=== PATIENT | male | born 1960 | race Two or more races ===

== ENCOUNTER → 2016-07-01 | Outpatient (CLI) | payer MEDICAID ==
--- NOTE | 2016-07-01 12:12 | REP ---
CERVICAL SPINE, SEVEN VIEWS: HISTORY: Neck pain. The cervical spine is visualized from C1 to the C5-6 level in the lateral radiographs. There is no acute fracture or subluxation. The C3-4 intervertebral disc is decreased in height consistent with disc degeneration. There is narrowing of the C4 neural foramina secondary to uncinate process hypertrophy. IMPRESSION: Degenerative change as described above. Signed by Shai Knott MD 07/01/2016 12:22 P
--- NOTE | 2016-07-01 12:14 | REP ---
THORACIC SPINE, FOUR VIEWS: HISTORY: Neck pain. There are old compression fractures of the T6-8 vertebral bodies with minimal height loss. There is loss of height of several mid and lower thoracic intervertebral discs. Anterior osteophytes are present in the mid and lower thoracic spine. IMPRESSION: Degenerative change as described above. Signed by Shai Knott MD 07/01/2016 12:22 P
== END ==
LOC: M ADAMS 10:05
PROVIDERS: ATTEND Physician Assistant Medical
DX: M54.2 Cervicalgia (principal); M50.33 Other cervical disc degeneration, cervicothoracic region; M25.78 Osteophyte, vertebrae

== ENCOUNTER → 2016-07-01 | Outpatient (REF) | payer MEDICAID ==
[2016-07-01 13:17] LABS: FOLATE 14.1 NG/ML
[2016-07-01 13:24] LABS: ALBUMIN 4.3 GM/DL (3.2-5.2); ALBUMIN/GLOBULIN RATIO 1.19 (1.00-1.93); ALKALINE PHOSPHATASE 115 U/L (45-117); ALT/SGPT 30 U/L (12-78); ANION GAP 5 MEQ/L (8-16); AST/SGOT 21 U/L (15-37); BILIRUBIN,TOTAL 0.3 MG/DL (0.2-1.0); BLOOD UREA NITROGEN 9 MG/DL (7-18); CALCIUM LEVEL 9.4 MG/DL (8.5-10.1); CARBON DIOXIDE LEVEL 32 MEQ/L (21-32); CHLORIDE LEVEL 102 MEQ/L (98-107); CHOLESTEROL LEVEL 220 MG/DL (<200); CREATININE FOR GFR 0.96 MG/DL (0.70-1.30); GLOMERULAR FILTRATION RATE > 60.0 (>56); GLUCOSE, FASTING 92 MG/DL (70-105); POTASSIUM SERUM 4.4 MEQ/L (3.5-5.1); SODIUM LEVEL 139 MEQ/L (136-145); TOTAL PROTEIN 7.9 GM/DL (6.4-8.2); TRIGLYCERIDES LEVEL 175 MG/DL (<150)
[2016-07-01 13:25] LABS: VITAMIN B12 LEVEL 373 PG/ML
[2016-07-01 14:01] LABS: BASO # 0.1 K/mm3 (0.0-0.2); BASO % 1.4 % (0.0-1.0); EOS # 0.3 K/mm3 (0.0-0.50); EOS % 3.6 % (0.0-3.0); LARGE UNSTAINED CELL # 0.2 K/mm3 (0.0-0.4); LARGE UNSTAINED CELL % 2.2 % (0.0-4.0); LYMPH # 1.6 K/mm3 (1.5-4.5); LYMPH % 22.5 % (24.0-44.0); MEAN CORPUSCULAR HEMOGLOBIN 32.7 pg (27.0-33.0); MEAN CORPUSCULAR VOLUME 98.8 fl (80.0-96.0); MONO # 0.7 K/mm3 (0.0-0.8); MONO % 9.1 % (0.0-5.0); NEUTROPHILS # 4.4 K/mm3 (1.8-7.7); NEUTROPHILS % 61.2 % (36.0-66.0); PLATELET COUNT, AUTOMATED 328 k/mm3 (150-450); RED CELL DISTRIBUTION WIDTH 12.9 % (11.5-14.5); WHITE BLOOD COUNT 7.2 K/mm3 (4.0-10.0)
== END ==
LOC: M SFHCADAM 09:31
PROVIDERS: ATTEND Physician Assistant Medical
DX: I10 Essential (primary) hypertension (principal); R20.2 Paresthesia of skin

== ENCOUNTER → 2016-08-19 | Outpatient (CLI) | payer OTHER ==
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
== END ==
LOC: M RAD 15:27
PROVIDERS: ATTEND Psychiatry & Neurology Neurology
DX: M47.892 Other spondylosis, cervical region (principal); M47.893 Other spondylosis, cervicothoracic region; M51.36 Other intervertebral disc degeneration, lumbar region; M51.87 Other intervertebral disc disorders, lumbosacral region; M47.894 Other spondylosis, thoracic region; M54.2 Cervicalgia; M43.02 Spondylolysis, cervical region; M54.12 Radiculopathy, cervical region; M54.89 Other dorsalgia; M43.04 Spondylolysis, thoracic region; M54.5 Low back pain; M43.06 Spondylolysis, lumbar region; M54.16 Radiculopathy, lumbar region

== ENCOUNTER → 2016-08-27 | Outpatient (CLI) | payer OTHER ==
--- NOTE | 2016-08-27 10:03 | REP ---
Clinical: Left testicular mass. Technique: Real time francis scale and color Doppler evaluation using linear high frequency transducer. Findings: The bilateral testicles and right epididymis are normal in contour, size, echogenicity, and vascularity without evidence for torsion, mass, or infectious/inflammatory process. In the region of suspected mass, the left epididymis demonstrates a cystic component measuring 2.8 x 1.7 x 2.0 cm with mobile, layering debris suggesting spermatocele. A small associated left sided hydrocele is also identified. No varicoceles noted bilaterally. Right testicle measures 4.6 x 2.6 x 3.0 cm. Left testicle measures 4.8 x 2.6 x 3.0 cm. Impression: 1. Left-sided palpable mass corresponds to 2.8 cm presumed spermatocele along with small simple hydrocele. 2. Normal bilateral testicles and right epididymis. Signed by Laurent Pabon MD 08/27/2016 09:54 A
== END ==
LOC: M RAD 09:05
PROVIDERS: ATTEND Physician Assistant Medical
DX: N50.9 Disorder of male genital organs, unspecified (principal)

== ENCOUNTER → 2016-09-13 | Outpatient (CLI) | payer OTHER ==
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
== END ==
LOC: M PAIN 11:20
PROVIDERS: ATTEND Nurse Practitioner Family
DX: G89.29 Other chronic pain (principal); M50.20 Other cervical disc displacement, unspecified cervical region; M79.1 Myalgia; M54.5 Low back pain; F17.210 Nicotine dependence, cigarettes, uncomplicated; I10 Essential (primary) hypertension; R41.3 Other amnesia; E55.9 Vitamin D deficiency, unspecified; R20.2 Paresthesia of skin; Z91.030 Bee allergy status; Z79.899 Other long term (current) drug therapy

== ENCOUNTER → 2016-11-17 | Outpatient (CLI) | payer OTHER ==
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
== END ==
LOC: M PAIN 11:00
PROVIDERS: ATTEND Nurse Practitioner Family
DX: M50.20 Other cervical disc displacement, unspecified cervical region (principal); M79.1 Myalgia; G89.29 Other chronic pain; M54.5 Low back pain; I10 Essential (primary) hypertension; E55.9 Vitamin D deficiency, unspecified; R41.3 Other amnesia; M25.511 Pain in right shoulder; Z87.891 Personal history of nicotine dependence; Z79.899 Other long term (current) drug therapy; Z91.030 Bee allergy status

== ENCOUNTER → 2016-12-07 | Outpatient (CLI) | payer OTHER ==
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
== END ==
LOC: M PAIN 13:45
PROVIDERS: ATTEND Nurse Practitioner Family
DX: M50.20 Other cervical disc displacement, unspecified cervical region (principal); M79.1 Myalgia; M25.511 Pain in right shoulder; M54.5 Low back pain; G89.29 Other chronic pain; I10 Essential (primary) hypertension; E55.9 Vitamin D deficiency, unspecified; F17.210 Nicotine dependence, cigarettes, uncomplicated; Z91.030 Bee allergy status

== ENCOUNTER → 2017-02-04 | Outpatient (CLI) | payer OTHER ==
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
== END ==
LOC: M PAIN 10:15
PROVIDERS: ATTEND Nurse Practitioner Family
DX: G89.29 Other chronic pain (principal); M50.20 Other cervical disc displacement, unspecified cervical region; M25.511 Pain in right shoulder; M79.1 Myalgia; I10 Essential (primary) hypertension; E55.9 Vitamin D deficiency, unspecified; F17.210 Nicotine dependence, cigarettes, uncomplicated; F41.9 Anxiety disorder, unspecified; Z91.030 Bee allergy status; Z79.899 Other long term (current) drug therapy

== ENCOUNTER → 2017-03-10 | Outpatient (REF) | payer OTHER | LOC: M SFHCADAM 08:01 | PROVIDERS: ATTEND Physician Assistant Medical | DX: E55.9 Vitamin D deficiency, unspecified (principal) ==

== ENCOUNTER → 2017-12-16 | Outpatient (CLI) | payer OTHER | LOC: M PLARAD 12:36 | DX: M54.6 Pain in thoracic spine (principal); M47.814 Spondylosis without myelopathy or radiculopathy, thoracic region; M47.892 Other spondylosis, cervical region; M54.12 Radiculopathy, cervical region | CPT/HCPCS: 72141 ==

== ENCOUNTER → 2017-12-27 | Outpatient (CLI) | payer MEDICAID | LOC: M OUTALCOH 08:00 | DX: Z13.89 Encounter for screening for other disorder (principal); F10.20 Alcohol dependence, uncomplicated ==

== ENCOUNTER → 2018-01-05 | Outpatient (CLI) | payer OTHER | LOC: M PAIN 10:15 | DX: M47.22 Other spondylosis with radiculopathy, cervical region (principal); M79.10 Myalgia, unspecified site; G60.3 Idiopathic progressive neuropathy; R20.2 Paresthesia of skin; F41.9 Anxiety disorder, unspecified; I73.00 Raynaud's syndrome without gangrene; Z79.899 Other long term (current) drug therapy; Z91.030 Bee allergy status | CPT/HCPCS: G0463 ==

== ENCOUNTER 2018-01-06 15:37 | Outpatient (RCR) | payer MEDICAID | END 2018-02-01 | LOC: M OUTALCOH 15:37 | DX: F10.20 Alcohol dependence, uncomplicated (principal); F17.200 Nicotine dependence, unspecified, uncomplicated ==

== ENCOUNTER → 2018-02-27 | Outpatient (CLI) | payer OTHER | LOC: M PAIN 10:45 | DX: M47.22 Other spondylosis with radiculopathy, cervical region (principal); M79.18 Myalgia, other site; I10 Essential (primary) hypertension; E11.9 Type 2 diabetes mellitus without complications; R20.2 Paresthesia of skin; F41.9 Anxiety disorder, unspecified; I73.00 Raynaud's syndrome without gangrene; G60.3 Idiopathic progressive neuropathy; F17.210 Nicotine dependence, cigarettes, uncomplicated; Z79.899 Other long term (current) drug therapy; Z91.030 Bee allergy status | CPT/HCPCS: G0463 ==

== ENCOUNTER → 2018-04-28 | Outpatient (REF) | payer OTHER ==
[2018-04-28 16:04] LABS: BASO # 0.1 10^3/uL (0.0-0.2); BASO % 1.7 % (0.0-1.0); EOS # 0.4 10^3/uL (0.0-0.50); EOS % 4.4 % (0.0-3.0); HEMATOCRIT 46.8 % (42.0-52.0); HEMOGLOBIN 15.7 g/dl (13.5-17.5); LYMPH # 2.8 10^3/uL (1.5-4.5); LYMPH % 34.3 % (24.0-44.0); MEAN CORPUSCULAR HGB CONC 33.5 g/dl (32.0-36.5); MEAN CORPUSCULAR VOLUME 92.5 fl (80.0-96.0); MONO # 0.9 10^3/uL (0.0-0.8); NEUTROPHILS % 48.2 % (36.0-66.0); PLATELET COUNT, AUTOMATED 333 10^3/uL (150-450); RED BLOOD COUNT 5.06 10^6/uL (4.30-6.10); WHITE BLOOD COUNT 8.3 10^3/uL (4.0-10.0)
[2018-04-28 16:30] LABS: ALBUMIN 4.2 GM/DL (3.2-5.2); ALT/SGPT 21 U/L (12-78); BILIRUBIN,TOTAL 0.2 MG/DL (0.2-1.0); BLOOD UREA NITROGEN 9 MG/DL (7-18); CALCIUM LEVEL 9.2 MG/DL (8.5-10.1); CARBON DIOXIDE LEVEL 27 MEQ/L (21-32); CHLORIDE LEVEL 100 MEQ/L (98-107); CHOLESTEROL LEVEL 265 MG/DL (<200); CHOLESTEROL RISK RATIO 7.571 (<5); CREATININE FOR GFR 1.04 MG/DL (0.70-1.30); GLOMERULAR FILTRATION RATE > 60.0 (>56); GLUCOSE, FASTING 106 MG/DL (70-100); HDL CHOLESTEROL 35 MG/DL (>40); LDL CHOLESTEROL 175 MG/DL (<100); NON-HDL-C 230 MG/DL; POTASSIUM SERUM 4.7 MEQ/L (3.5-5.1); SODIUM LEVEL 135 MEQ/L (136-145); TOTAL PROTEIN 8.1 GM/DL (6.4-8.2); TRIGLYCERIDES LEVEL 273 MG/DL (<150)
[2018-04-28 16:38] LABS: TOTAL 25(OH) VITAMIN D 24.7 NG/ML (30.0-100.0)
== END ==
LOC: M SFHCADAM 13:31
PROVIDERS: ATTEND Physician Assistant Medical
DX: I10 Essential (primary) hypertension (principal); E55.9 Vitamin D deficiency, unspecified

== ENCOUNTER 2019-01-11 15:20 | Inpatient (IN) | payer OTHER ==
[~2019-01-11] VITALS: Ht 182.9 cm; Wt 95.1 kg
[2019-01-11] MEDS ORDERED: AMIT50TA PO (15:36)
[2019-01-11] MEDS ORDERED: BACL10TA2 PO (15:36)
[2019-01-11] MEDS ORDERED: LISI10TA4 PO (15:36)
[2019-01-11] MEDS ORDERED: GABA-1171 PO (15:36)
[2019-01-11 16:01] LABS: HEMATOCRIT 45.6 % (42.0-52.0); HEMOGLOBIN 15.4 g/dl (13.5-17.5); MEAN CORPUSCULAR HEMOGLOBIN 30.4 pg (27.0-33.0); MEAN CORPUSCULAR HGB CONC 33.8 g/dl (32.0-36.5); MEAN CORPUSCULAR VOLUME 89.9 fl (80.0-96.0); PLATELET COUNT, AUTOMATED 311 10^3/uL (150-450); RED BLOOD COUNT 5.07 10^6/uL (4.30-6.10); WHITE BLOOD COUNT 10.1 10^3/uL (4.0-10.0)
[2019-01-11 16:17] LABS: INR 0.97; PARTIAL THROMBOPLASTIN TIME 30.6 SECONDS (25.0-38.4); PROTHROMBIN TIME 12.6 SECONDS (11.8-14.0)
[2019-01-11 16:35] LABS: BLOOD UREA NITROGEN 9 MG/DL (7-18); CALCIUM LEVEL 9.4 MG/DL (8.5-10.1); CARBON DIOXIDE LEVEL 29 MEQ/L (21-32); CHLORIDE LEVEL 100 MEQ/L (98-107); CK-MB VALUE MASS < 1.0 NG/ML (<3.6); CPK CREATINE PHOSPHOKINASE 94 U/L (39-308); CREATININE FOR GFR 1.02 MG/DL (0.70-1.30); GLOMERULAR FILTRATION RATE > 60.0 (>56); GLUCOSE, FASTING 116 MG/DL (70-100); MB/CK RELATIVE INDEX 1.06 (< OR =4); POTASSIUM SERUM 4.1 MEQ/L (3.5-5.1); SODIUM LEVEL 135 MEQ/L (136-145); TROPONIN I < 0.02 NG/ML (< 0.10)
--- NOTE | 2019-01-11 16:38 | REP ---
CT brain without contrast: History: CVA. No comparison CT study. CT findings: Preliminary digital windows support engineer radiograph is unremarkable. The bony calvarium is intact. There is a small mucous retention cyst in the right sphenoid sinus. Vascular calcification is noted in the carotid siphons bilaterally. No intraorbital abnormality is appreciated. On soft tissue window settings, there is no evidence of intracranial hemorrhage, mass, acute infarct, or midline shift. There is a small low density area inferiorly in the right basal ganglia consistent with dilated perivascular space. This is felt to be normal variant. There are mild small vessel changes in the periventricular white matter. Impression: No acute intracranial abnormality. Vascular calcification and mild small vessel changes. Electronically Signed by Holger Ferrara MD 01/11/2019 04:30 P
--- NOTE | 2019-01-11 16:43 | REP ---
Portable chest x-ray: Single view. History: CVA. No comparison study. Findings: EKG electrodes are seen. The lungs are symmetrically aerated and free of focal infiltrate. Pleural angles are sharp. Cardiomediastinal silhouette is unremarkable. No bony abnormalities seen. Impression: No active disease. Electronically Signed by Holger Ferrara MD 01/11/2019 04:34 P
[2019-01-11] MEDS ORDERED: ASPIRIN 325 MG TAB PO ONE (17:30)
[2019-01-11] MEDS ORDERED: MULTCAP PO (17:54)
[2019-01-11] MEDS ORDERED: MAALOX 30 ML SUSP *UDC PO PRN (19:15)
[2019-01-11] MEDS ORDERED: BACLOFEN 10 MG TAB PO PRN (19:15)
[2019-01-11] MEDS ORDERED: ACETAMINOPHEN TAB 650MG DOSE (2X325MG) PO PRN (19:15)
[2019-01-11] MEDS ORDERED: GABAPENTIN 100 MG CAP PO PRN (19:15)
[2019-01-11] MEDS ORDERED: MOM 30ML SUSPENSION UDC PO PRN (19:15)
[2019-01-11] MEDS ORDERED: MULTIVITAMINS/MINERALS THERAP 1 TAB PO ONE (19:15)
[2019-01-11 19:30] VITALS: O2SAT 96
--- NOTE | 2019-01-11 19:36 | REPVR ---
PROCEDURE INFORMATION: Exam: MR Head Without Contrast Exam date and time: 01/11/2019 5:30 PM Clinical history: 58 years old, male; Weakness, extremity; Right; Additional info: CVA TECHNIQUE: Imaging protocol: MR of the head without contrast. COMPARISON: CT Head without contrast 01/11/2019 4:21 PM FINDINGS: Brain: Acute infarct in the left thalamus measuring 5 mm.Mild chronic microvascular ischemic changes. Ventricles: Normal. No ventriculomegaly. Bones/joints: Unremarkable. Soft tissues: Unremarkable. Sinuses: See Brain Finding. Mastoid air cells: Normal as visualized. No mastoid effusion. Orbits: Unremarkable. Mucous retention cyst/polyp of the right sphenoid sinus. IMPRESSION: Acute infarct of the left thalamus measuring 5 mm. Electronically signed by: Noam Curry On 01/11/2019 19:36:41 PM
--- NOTE | 2019-01-11 19:38 | REPVR ---
PROCEDURE INFORMATION: Exam: MR Angiogram Head Without Contrast, Arteries Exam date and time: 01/11/2019 5:30 PM Clinical history: 58 years old, male; Weakness; Additional info: CVA TECHNIQUE: Imaging protocol: MR angiogram head without contrast. Exam focused on the arteries. COMPARISON: CT Head without contrast 01/11/2019 4:21 PM FINDINGS: Right internal carotid artery: Unremarkable. Intracranial segment is patent with no significant stenosis. No aneurysm. Right anterior cerebral artery: Unremarkable. No occlusion or significant stenosis. No aneurysm. Right middle cerebral artery: Unremarkable. No occlusion or significant stenosis. No aneurysm. Right posterior cerebral artery: Unremarkable. No occlusion or significant stenosis. No aneurysm. Right vertebral artery: Unremarkable. No occlusion or significant stenosis. No aneurysm. Left internal carotid artery: Unremarkable. Intracranial segment is patent with no significant stenosis. No aneurysm. Left anterior cerebral artery: Unremarkable. No occlusion or significant stenosis. No aneurysm. Left middle cerebral artery: Unremarkable. No occlusion or significant stenosis. No aneurysm. Left posterior cerebral artery: Unremarkable. No occlusion or significant stenosis. No aneurysm. Left vertebral artery: Unremarkable. No occlusion or significant stenosis. No aneurysm. Basilar artery: Unremarkable. No occlusion or significant stenosis. No aneurysm. IMPRESSION: No acute abnormality. Electronically signed by: Noam Curry On 01/11/2019 19:38:09 PM
[2019-01-11 20:00] VITALS: BP 171/98
[2019-01-11 20:24] LABS: BASO # 0.1 10^3/uL (0.0-0.2); BASO % 1.1 % (0.0-1.0); EOS # 0.1 10^3/uL (0.0-0.5); EOS % 0.9 % (0.0-3.0); HEMATOCRIT 45.5 % (42.0-52.0); HEMOGLOBIN 15.6 g/dl (13.5-17.5); LYMPH # 1.7 10^3/uL (1.5-5.0); MEAN CORPUSCULAR HEMOGLOBIN 30.6 pg (27.0-33.0); MEAN CORPUSCULAR HGB CONC 34.3 g/dl (32.0-36.5); MEAN CORPUSCULAR VOLUME 89.4 fl (80.0-96.0); MONO % 10.8 % (0.0-5.0); NEUTROPHILS # 6.6 10^3/uL (1.5-8.5); NEUTROPHILS % 68.9 % (36.0-66.0); PLATELET COUNT, AUTOMATED 297 10^3/uL (150-450); RED BLOOD COUNT 5.09 10^6/uL (4.30-6.10); WHITE BLOOD COUNT 9.6 10^3/uL (4.0-10.0)
[2019-01-11] MEDS: NS 1,000 ML IV SCH (20:27)
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
[2019-01-11] MEDS ORDERED: ISOVUE-370 76% 100ML VIAL (Q9967) As Ordered ONE (20:41)
[2019-01-11 20:49] LABS: HEMOGLOBIN A1c 5.6 %
[2019-01-11] MEDS: DOCUSATE SODIUM 100 MG CAP PO SCH (20:57)
[2019-01-11] MEDS: AMITRIPTYLINE 50 MG TAB PO SCH (20:57)
[2019-01-11] MEDS: ATORVASTATIN 20 MG TAB PO SCH (20:58)
[2019-01-11 21:32] LABS: ALBUMIN 4.1 GM/DL (3.2-5.2); ALT/SGPT 17 U/L (12-78); BILIRUBIN,TOTAL 0.4 MG/DL (0.2-1.0); BLOOD UREA NITROGEN 7 MG/DL (7-18); CALCIUM LEVEL 9.7 MG/DL (8.5-10.1); CARBON DIOXIDE LEVEL 27 MEQ/L (21-32); CHLORIDE LEVEL 102 MEQ/L (98-107); CREATININE FOR GFR 0.94 MG/DL (0.70-1.30); GLOMERULAR FILTRATION RATE > 60.0 (>56); GLUCOSE, FASTING 96 MG/DL (70-100); SODIUM LEVEL 136 MEQ/L (136-145); TOTAL PROTEIN 8.7 GM/DL (6.4-8.2)
[2019-01-11 21:56] LABS: TROPONIN I < 0.02 NG/ML (< 0.10)
[2019-01-11 22:00] VITALS: O2SAT 98
--- NOTE | 2019-01-11 22:05 | REPVR ---
PROCEDURE INFORMATION: Exam: CT Angiography Head With Contrast Exam date and time: 01/11/2019 9:08 PM Clinical history: 58 years old, male; Other: Stroke TECHNIQUE: Imaging protocol: Computed tomography angiography of the head with intravenous contrast. 3D rendering: MIP reconstructed images were created and reviewed. Radiation optimization: All CT scans at this facility use at least one of these dose optimization techniques: automated exposure control; mA and/or kV adjustment per patient size (includes targeted exams where dose is matched to clinical indication); or iterative reconstruction. Contrast material: ISOVUE 370; Contrast volume: 100 ml; Contrast route: IV; COMPARISON: CT Head without contrast 01/11/2019 4:21 PM FINDINGS: Right internal carotid artery: Unremarkable. Intracranial segment is patent with no significant stenosis. No aneurysm. Right anterior cerebral artery: Unremarkable. No occlusion or significant stenosis. No aneurysm. Right middle cerebral artery: Unremarkable. No occlusion or significant stenosis. No aneurysm. Right posterior cerebral artery: Unremarkable. No occlusion or significant stenosis. No aneurysm. Right vertebral artery: Unremarkable. No occlusion or significant stenosis. No aneurysm. Left internal carotid artery: Unremarkable. Intracranial segment is patent with no significant stenosis. No aneurysm. Left anterior cerebral artery: Unremarkable. No occlusion or significant stenosis. No aneurysm. Left middle cerebral artery: Unremarkable. No occlusion or significant stenosis. No aneurysm. Left posterior cerebral artery: Unremarkable. No occlusion or significant stenosis. No aneurysm. Left vertebral artery: Unremarkable. No occlusion or significant stenosis. No aneurysm. Basilar artery: Unremarkable. No occlusion or significant stenosis. No aneurysm. IMPRESSION: Normal CTA. No significant stenosis, aneurysm, or vascular occlusion. Electronically signed by: Misael Sky On 01/11/2019 22:05:02 PM
--- NOTE | 2019-01-11 22:16 | REPVR ---
PROCEDURE INFORMATION: Exam: CT Head With Contrast Exam date and time: 01/11/2019 9:08 PM Clinical history: 58 years old, male; Other: Stroke TECHNIQUE: Imaging protocol: Computed tomography of the head with intravenous contrast. Radiation optimization: All CT scans at this facility use at least one of these dose optimization techniques: automated exposure control; mA and/or kV adjustment per patient size (includes targeted exams where dose is matched to clinical indication); or iterative reconstruction. Contrast material: ISOVUE 370; Contrast volume: 75 ml; Contrast route: IV; COMPARISON: CT Head without contrast 01/11/2019 4:21 PM FINDINGS: Brain: Normal ventricles. Symmetric cerebral sulci. The francis-white differentiation appears preserved. Bones/joints: Unremarkable. No acute fracture. Sinuses: Clear paranasal sinuses. Mastoid air cells: Clear mastoid air cells. Soft tissues: Unremarkable. Other findings: There is no evidence of acute stroke. An MRI scan would be more sensitive for this. IMPRESSION: No evidence of bleed. No evidence of stroke. An MRI scan would be more sensitive for this. PROCEDURE INFORMATION: Exam: CT Head Without And With Contrast Exam date and time: 01/11/2019 9:08 PM Clinical history: 58 years old, male; Other: Stroke TECHNIQUE: Imaging protocol: Computed tomography of the head without and with intravenous contrast. COMPARISON: CT Head without contrast 01/11/2019 4:21 PM FINDINGS: Brain: There is no evidence of abnormal enhancement within the brain. There is no evidence of mass effect. There is no evidence of mass effect. Ventricles: Normal. No ventriculomegaly. Bones/joints: Unremarkable. No acute fracture. Sinuses: Visualized sinuses are unremarkable. No fluid levels. Mastoid air cells: Visualized mastoid air cells are well aerated. Soft tissues: Unremarkable. Vasculature: There is opacification of the vessels of the [place]. There is opacification of the cavernous sinus bilaterally and also the venous sinuses. IMPRESSION: No evidence of vascular abnormality. Electronically signed by: Joey Zavaleta On 01/11/2019 22:16:20 PM
[2019-01-11 22:30] VITALS: BP 122/70
[2019-01-11 23:00] VITALS: O2SAT 93
[2019-01-11 23:59] VITALS: BP 122/72
[2019-01-12] VITALS (23 sets, daily range): BP systolic 117–143; BP diastolic 73–88; O2SAT 93–98
[2019-01-12 03:37] LABS: HEMATOCRIT 42.4 % (42.0-52.0); HEMOGLOBIN 14.7 g/dl (13.5-17.5); MEAN CORPUSCULAR HGB CONC 34.7 g/dl (32.0-36.5); MEAN CORPUSCULAR VOLUME 89.5 fl (80.0-96.0); PLATELET COUNT, AUTOMATED 269 10^3/uL (150-450); RED BLOOD COUNT 4.74 10^6/uL (4.30-6.10); WHITE BLOOD COUNT 9.2 10^3/uL (4.0-10.0)
[2019-01-12 03:59] LABS: ALBUMIN 3.9 GM/DL (3.2-5.2); ALT/SGPT 21 U/L (12-78); BILIRUBIN,TOTAL 0.5 MG/DL (0.2-1.0); BLOOD UREA NITROGEN 7 MG/DL (7-18); CALCIUM LEVEL 8.9 MG/DL (8.5-10.1); CARBON DIOXIDE LEVEL 26 MEQ/L (21-32); CHLORIDE LEVEL 106 MEQ/L (98-107); CREATININE FOR GFR 0.93 MG/DL (0.70-1.30); GLOMERULAR FILTRATION RATE > 60.0 (>56); GLUCOSE, FASTING 93 MG/DL (70-100); POTASSIUM SERUM 4.2 MEQ/L (3.5-5.1); SODIUM LEVEL 141 MEQ/L (136-145); TOTAL PROTEIN 7.7 GM/DL (6.4-8.2); TROPONIN I < 0.02 NG/ML (< 0.10)
[2019-01-12] MEDS: NS 1,000 ML IV SCH ×2 (07:30→16:05)
--- NOTE | 2019-01-12 07:35 | ECGEPIP ---
[facility] - ED Test Date: 2019-01-11 Pat Name: LUIGI MYRICK Department: Room: - Gender: Male [employer] Set [employer] Operator: SARAH BETH : 1960 Requested By: ROSY Umana Order Number: [id number] Reading MD: Senthil Hale Measurements Intervals [place] Rate: 70 P: 39 CA: 194 QRS: 7 QRSD: 120 T: 28 QT: 375 QTc: 406 Interpretive Statements SINUS RHYTHM INCOMPLETE RIGHT BUNDLE BRANCH BLOCK NO PRIORS FOR COMPARISON Electronically Signed on 01-12-2019 7:35:01 EDT by Senthil Hale
[2019-01-12] MEDS ORDERED: PANTOPRAZOLE 40MG TAB (PROTONIX) PO SCH (09:00)
[2019-01-12] MEDS ORDERED: ASPIRIN ENTERIC 325 MG TAB PO SCH (09:00)
[2019-01-12] MEDS: LISINOPRIL 10 MG TAB PO SCH (09:27)
[2019-01-12] MEDS: DOCUSATE SODIUM 100 MG CAP PO SCH ×2 (09:27→21:00)
[2019-01-12] MEDS: CLOPIDOGREL 75 MG TAB PO SCH (10:13)
--- NOTE | 2019-01-12 10:16 | IPNPDOC ---
Subjective Date Seen The patient was seen on 01/12/19. Subjective Chief Complaint/HPI still has some numbness in right lip and right arm/hand Constitutional: Denies: Chills ENT: Denies: Head Aches, Dysphagia Skin: Denies: Rash Pulmonary: Denies: Dyspnea, Cough, Pleuritic Chest Pain Cardiovascular: Denies: Chest Pain, Palpitations Gastrointestinal: Denies: Nausea, Abdominal Pain Genitourinary: Denies: Dysuria, Frequency Hematologic: Denies: Bruising Neurological: Reports: Numbness; Denies: Change in speech (right lip and right hand) Psych: Reports: Mood Normal Objective Physical Examination General Exam: Positive: Alert, Cooperative, Moderate Distress (complaints of pain, numbness and tingling right side of face, spreading to right shoulder greatest pain is here radiating down to the right wrist & is increasing) Eye Exam: Positive: PERRLA, Conjunctiva & lids normal ENT Exam: Positive: Atraumatic, Pharynx Normal, Tongue Midline, Nares Patent, Other ENT (top teeth across the front decayed, black in color) Neck Exam: Positive: Supple, +2 carotid pulse wo bruit Chest Exam: Positive: Clear to auscultation, Normal air movement Heart Exam: Positive: Rate Normal, Regular Rhythm, Normal S1, Normal S2 Abdomen Exam: Positive: Normal bowel sounds, Soft Extremity Exam: Positive: Normal pulses Skin Exam: Positive: Nl turgor and temperature, Other skin issue (left upper arm tattoo, left lower leg tattoo (outer)) Neuro Exam: Positive: Normal Speech (slightly dysarthric but many missing teeth may contribute. patient perceives his speech as normal.), Other (uneven right cheek during puffing out cheeks during cranial nerves VII Assessment with right- sided slightly drooped downward; subjective decrease light touch sensation right lip, right thumb, index.) Psych Exam: Positive: Anxiety (mild anxiety), Oriented x 3 Assessment /Plan Problems (1) CVA (cerebral vascular accident) Status: Acute Response to Treatment: Stable Problem Specific Plan: Consult Specialist Problem Text: atorvastatin, ASA, Clopidogrel have been ordered. Neuro Consult was ordered by admitting hospitalist. MRI showing acute 5mm left thalamic infarct. MRA not showing any occlusions. (2) Hypercholesteremia Status: Chronic Problem Text: has not been on Rx for this problem. Atorvastatin started. (3) Tobacco abuse Status: Chronic Response to Treatment: Stable Problem Text: admits to 1/2-1 ppd has been counseled to quit. (4) Teeth decayed Status: Chronic Response to Treatment: Stable Problem Specific Plan: Monitor Clinically Problem Text: had Dentist in the community ([place]) but did not follow through with recommended treatment. (5) Essential hypertension Status: Chronic Response to Treatment: Stable Problem Specific Plan: Monitor Clinically Problem Text: had been on lisinopril 10mg with adequate control at last office visit 04/2018. Plan/VTE VTE Prophylaxis Ordered?: Yes VTE Exclusion Pharmacological: Bleeding Risk VS, I&O, 24H, Fishbone Vital Signs/I&O Vital Signs Date Time Temp Pulse Resp B/P (MAP) Pulse Ox O2 Delivery O2 Flow Rate FiO2 01/12/19 09:27 121/75 01/12/19 07:39 98.1 76 18 100 2.0 01/12/19 06:00 Nasal Cannula I&O- Last 24 Hours up to 6 AM 01/12/19 06:00 Intake Total 950 ml Output Total 450 ml Balance 500 ml Laboratory Data 24H LABS Laboratory Tests 2 01/11/19 15:51: Nucleated Red Blood Cells % (auto) 0.0, Prothrombin Time 12.6, Prothromb Time International Ratio 0.97, Activated Partial Thromboplast Time 30.6, Anion Gap 6L, Glomerular Filtration Rate > 60.0, Blood Urea Nitrogen 9, Creatinine 1.02, Sodium Level 135L, Potassium Level 4.1, Chloride Level 100, Carbon Dioxide Level 29, Calcium Level 9.4, Total Creatine Kinase 94, Creatine Kinase MB < 1.0, Creat ine Kinase MB Relative Index 1.06, Troponin I < 0.02 01/11/19 20:13: Anion Gap 7L, Glomerular Filtration Rate > 60.0, Blood Urea Nitrogen 7, Creatinine 0.94, Sodium Level 136, Potassium Level 4.0, Chloride Level 102, Carbon Dioxide Level 27, Calcium Level 9.7, Troponin I < 0.02, Aspartate Amino Transf (AST/SGOT) 11, Alanine Aminotransferase (ALT/SGPT) 17, Alkaline Phosphatase 154H, Total Bilirubin 0.4, Total Protein 8.7H, Albumin 4.1, Albumin/Globulin Ratio 0.89L, Thyroid Stimulating Hormone (TSH) 1.780 01/11/19 20:14: Nucleated Red Blood Cells % (auto) 0.0, Immature Granulocyte % (Auto) 0.3, White Blood Count 9.6, Red Blood Count 5.09, Hemoglobin 15.6, Hematocrit 45.5, Mean Corpuscular Volume 89.4, Mean Corpuscular Hemoglobin 30.6, Mean Corpuscular Hemoglobin Concent 34.3, Red Cell Distribution Width 13.4, Platelet Count 297, Neutrophils (%) (Auto) 68.9H, Lymphocytes (%) (Auto) 18.0L, Monocytes (%) (Auto) 10.8H, Eosinophils (%) (Auto) 0.9, Basophils (%) (Auto) 1.1H, Neutrophils # (Auto) 6.6, Lymphocytes # (Auto) 1.7, Monocytes # (Auto) 1.0H, Eosinophils # (Auto) 0.1, Basophils # (Auto) 0.1, Estimated Mean Plasma Glucose 114H, Hemoglobin A1c 5.6 01/12/19 00:42: Urine Color YELLOW, Urine Appearance CLEAR, Urine pH 6.0, Urine Specific [place] 1.038, Urine Protein NEGATIVE, Urine Glucose (UA) NEGATIVE, Urine Ketones TRACEH, Urine Blood NEGATIVE, Urine Nitrite NEGATIVE, Urine Bilirubin NEGATIVE, Urine Urobilinogen 0.2, Urine Leukocyte Esterase NEGATIVE, Urine WBC (Auto) 0, Urine RBC (Auto) 3, Urine Hyaline Casts (Auto) 0, Urine Bacteria (Auto) NEGATIVE, Urine Squamous Epithelial Cells 0, Urine Sperm (Auto) 01/12/19 03:16: Lactic Acid Level 0.5 01/12/19 03:17: Nucleated Red Blood Cells % (auto) 0.0, Anion Gap 9, Glomerular Filtration Rate > 60.0, Blood Urea Nitrogen 7, Creatinine 0.93, Sodium Level 141, Potassium Level 4.2, Chloride Level 106, Carbon Dioxide Level 26, Calcium Level 8.9, Aspartate Amino Transf (AST/SGOT) 9, Alanine Aminotransferase (ALT/SGPT) 21, Alkaline Phosphatase 153H, Total Bilirubin 0.5, Total Protein 7.7, Albumin 3.9, Magnesium Level 2.0, Troponin I < 0.02, Albumin/Globulin Ratio 1.03 01/12/19 09:09: Troponin I < 0.02 CBC/BMP Laboratory Tests 01/11/19 15:51 Red Blood Count 5.07, Mean Corpuscular Volume 89.9, Mean Corpuscular Hemoglobin 30.4, Mean Corpuscular Hemoglobin Concent 33.8, Red Cell Distribution Width 13.6, Calcium Level 9.4, Total Creatine Kinase 94 01/11/19 20:13 Calcium Level 9.7, Aspartate Amino Transf (AST/SGOT) 11, Alanine Aminotransferase (ALT/SGPT) 17, Alkaline Phosphatase 154 H, Total Bilirubin 0.4, Total Protein 8.7 H, Albumin 4.1 01/11/19 20:14 Red Blood Count 5.09, Mean Corpuscular Volume 89.4, Mean Corpuscular Hemoglobin 30.6, Mean Corpuscular Hemoglobin Concent 34.3, Red Cell Distribution Width 13.4, Neutrophils (%) (Auto) 68.9 H, Lymphocytes (%) (Auto) 18.0 L, Monocytes (%) (Auto) 10.8 H, Eosinophils (%) (Auto) 0.9, Basophils (%) (Auto) 1.1 H, Neutrophils # (Auto) 6.6, Lymphocytes # (Auto) 1.7, Monocytes # (Auto) 1.0 H, Eosinophils # (Auto) 0.1, Basophils # (Auto) 0.1 01/12/19 03:17 Red Blood Count 4.74, Mean Corpuscular Volume 89.5, Mean Corpuscular Hemoglobin 31.0, Mean Corpuscular Hemoglobin Concent 34.7, Red Cell Distribution Width 13.5, Calcium Level 8.9, Aspartate Amino Transf (AST/SGOT) 9, Alanine Aminotransferase (ALT/SGPT) 21, Alkaline Phosphatase 153 H, Total Bilirubin 0.5, Total Protein 7.7, Albumin 3.9 Salazar Beth MD Jan 12, 2019 10:16
--- NOTE | 2019-01-12 11:06 | REP ---
Right shoulder three views: Mineralization is normal. The acromioclavicular joint is unremarkable. There is glenohumeral osteoarthritis. There is a calcification projected inferior to the acromion compatible with calcific tendonitis. Impression: Glenohumeral osteoarthritis. 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 Electronically Signed by Justin Arrieta MD 01/12/2019 10:57 A
--- NOTE | 2019-01-12 19:07 | CR ---
DATE OF CONSULTATION: 01/12/2019 REFERRING PHYSICIAN: Dr. Deedee Katz REASON FOR CONSULTATION: Right-sided facial and arm numbness. HISTORY OF PRESENT ILLNESS: Vinay Erazo is a 58-year-old man who was at his baseline state of health until the morning of 01/10/2019 when he woke up with right-sided facial, lip, gums, and arm numbness and tingling. He called his primary care physician who recommended him to come to emergency department. He denies any headache, neck or back pain with his symptoms. He denies any weakness, imbalance, or trouble with his speech. He came to [facility] on 01/11/2019, and MRI scan of brain showed a 5 mm small left thalamic acute ischemic stroke. He was admitted for further workup. DIAGNOSTIC STUDIES: MRI scan of brain was reviewed and showed a 5 mm small left thalamic acute ischemic stroke. MRA brain and CTA of neck were unremarkable. His telemetry showed normal sinus rhythm. PAST MEDICAL HISTORY: 1. Hypertension. 2. Peripheral neuropathy. 3. Chronic neck and back pain. 4. Carpal tunnel syndrome. 5. History of tobacco and alcohol abuse in past. HOME MEDICATIONS: - amitriptyline 50 mg by mouth at bedtime - lisinopril 10 mg by mouth daily - multivitamin one capsule by mouth daily - baclofen 10 mg by mouth three times a day as needed - gabapentin 100 mg by mouth twice a day as needed ALLERGIES: Bee stings. SOCIAL HISTORY: He quit smoking in March 2019. He smoked one pack per day for 11 years. He quit drinking alcohol in February 2018. He was drinking six packs of beer a day and a fifth of vodka a day. He used cocaine many years ago and quit 15 years ago. FAMILY HISTORY: His mother and father both had stroke. REVIEW OF SYSTEMS: All systems were reviewed and found to be noncontributory except as mentioned in history of present illness. PHYSICAL EXAMINATION: Temperature 97.1, blood pressure 128/88, respiratory rate 18. HEART: Regular rate and rhythm. LUNGS: Clear to auscultation. ABDOMEN: Soft, nontender, nondistended. No pedal edema. No musculoskeletal abnormalities. No rash. No signs of meningeal irritation. The patient is awake, alert, oriented to place, person, and time. Normal speech, comprehension, and repetition. Extraocular muscles are intact. No facial weakness. Uvula are midline. Strength 5/5 in all four extremities. There is no nystagmus. Visual vogel are full to confrontation. Recent and distant memory is intact. He has decreased cold touch sensation on right side of face around his mouth and right forearm, but it is much better. Sensation in both legs is decreased. This is due to his peripheral neuropathy likely. Gait is normal. ASSESSMENT: 1. Small acute left thalamic 5 mm ischemic stroke. 2. Rule out cardiac source, coagulopathy and vasculopathy. 3. History of bilateral carpal tunnel syndrome and peripheral neuropathy. 4. History of alcohol and tobacco abuse in past, and the patient has quit both. PLAN: 1. Echocardiogram and continue telemetry monitoring. 2. Aspirin 81 mg by mouth daily and Lipitor 40 mg by mouth daily. Will check his fasting lipid profile in the morning. Blood tests for coagulopathy and vasculopathy. 3. Plavix 75 mg by mouth daily for 1 month and then can be discontinued. 4. Followup with our office in 2-4 weeks after hospital discharge. OSIRIS
[2019-01-12 19:27] LABS: C REACTIVE PROTEIN QUANTITATIV 0.92 MG/DL (0.00-0.30); RHEUMATOID FACTOR QUANT < 10.0 IU/ML (<15.0)
[2019-01-12] MEDS: ATORVASTATIN 20 MG TAB PO SCH (21:00)
[2019-01-12] MEDS: AMITRIPTYLINE 50 MG TAB PO SCH (21:00)
[2019-01-13] VITALS: BP 130/85
[2019-01-13] MEDS: NS 1,000 ML IV SCH ×2 (01:55→11:15)
[2019-01-13 04:00] VITALS: BP 123/73
[2019-01-13 06:54] LABS: CHOLESTEROL RISK RATIO 6.233 (<5)
[2019-01-13 07:00] VITALS: O2SAT 99
[2019-01-13 07:38] VITALS: BP 138/80
[2019-01-13 08:00] VITALS: O2SAT 96
[2019-01-13] MEDS ORDERED: ASPIRIN 81 MG ENTERIC TAB PO SCH (09:00)
[2019-01-13] MEDS ORDERED: ASPI81TAEC PO (09:22)
[2019-01-13] MEDS ORDERED: CLOP75TA2 PO (09:22)
[2019-01-13] MEDS ORDERED: ATOR1TAB21 PO (09:27)
[2019-01-13 09:30] VITALS: BP 138/80
[2019-01-13] MEDS: LISINOPRIL 10 MG TAB PO SCH (09:30)
[2019-01-13] MEDS: CLOPIDOGREL 75 MG TAB PO SCH (09:30)
[2019-01-13] MEDS: DOCUSATE SODIUM 100 MG CAP PO SCH (09:30)
--- NOTE | 2019-01-13 10:02 | ECGEPIP ---
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
--- NOTE | 2019-01-13 16:35 | DSES ---
DATE OF ADMISSION: 01/11/2019 DATE OF DISCHARGE: 01/13/2019 REASON FOR ADMISSION: Mr. Erazo was admitted with right-sided facial and hand paresthesias, numbness, and some sense of weakness. Minimal facial droop was detected on admission as well. He has a history of hypertension and some history of alcohol abuse. MRI shows a stroke in the left thalamus area of 5 mm in size. No intra-arterial occlusive lesions were demonstrated. During his hospital stay his blood pressure was initially high. It came quickly under control with no significant modification of his medications. He was placed on aspirin and Plavix. He had no recurrent symptoms, and the intensity of his paresthesias and sense of weakness has improved somewhat since admission. X-ray of right shoulder was done because complaint of right shoulder pain, and he has glenohumeral osteoarthritis, calcification inferior to the acromion, compatible with calcific tendonitis. The patient was seen in consultation by Dr. Shukla, who would like to have an echocardiogram performed. The patient has no history of dysrhythmia or exertional chest pain. The patient quit smoking recently. Had been smoking a pack a day for at least 11 years. Echocardiogram was requested by Dr. Shukla and has not yet been performed and will be done today, and will discharge the patient once the procedure is completed, since it is not likely that regardless of the findings that he would benefit from continue stay in the hospital here. Additional laboratory studies that are pending at this time include an ELISE, kyld-dnvavl-wmouxdtk DNA, antithrombin III antigen, anticardiolipin antibodies, antineutrophil cytoplasmic antibodies, factor II prothrombin gene, factor V Leiden, factor VIII panel, homocysteine, and lupus type anticoagulant. These are pending at this time, as is the echocardiogram result. DISCHARGE DIAGNOSES: 1. Stroke involving left thalamus with residual paresthesias and sense of weakness in the right face, right lip, and right hand. No significant functional impairment associated with same at this time. 2. Hypertension, well controlled. 3. Dyslipidemia. 4. History of alcohol and tobacco abuse. 5. 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 PLAN: The patient will be discharged on current medication regimen, which will consist of aspirin 81 mg daily, clopidogrel 75 mg daily. The intent is to continue this combination for 1 month and then discontinue clopidogrel and continue aspirin indefinitely. Also will be on Lipitor 40 mg daily. The patient educated about the medication's utility and potential side effects and that the intent is for this to be a lifelong therapeutic to help reduce long-term stroke risk and cardiovascular risk. Activity will be as tolerated. Diet: 2-gram sodium. Followup with primary care physician (PCP), Nereyda Hunt, in [address] Shukla in 2-3 weeks and pending labs as listed above. MTDD
--- NOTE | 2019-01-14 06:39 | ECHO ---
DATE OF SERVICE: 01/12/2019 REFERRING PROVIDER: Jerson Shukla MD REASON FOR STUDY: Cerebrovascular accident (CVA). 2D MEASUREMENTS: IVS: 1.1 cm LV: 5.7 cm LVPW: 1.1 cm LA: 4.2 cm Aorta: 3.2 cm RV: 3.5 cm IVC: 2.0 cm DOPPLER MEASUREMENTS: Peak velocity across the aortic valve: 1.3 m/s Peak velocity across the LVOT: 1.0 m/s Mitral E: 0.74 Mitral A: 0.61 with a ratio of 1.2 2D COMMENTS: 1. The left ventricle appeared to be mildly enlarged in limited views. Left ventricular wall thickness is normal as well as left ventricular systolic function. The estimated global left ventricular systolic ejection fraction is 60-65%. 2. Mildly enlarged left atrium. The right atrium and right ventricle appeared to be mildly enlarged in limited views. Right ventricular wall free wall conduction seems to be normal. Preserved systolic function. 3. The atrial septum appeared to be normal without evidence of defect or shunt. 4. Normal aortic root. 5. Trace to small pericardial effusion noted, no evidence of cardiac tamponade. 6. The aortic valve, mitral valve, tricuspid valve, and pulmonic valve appeared to be normal. The proximal pulmonary artery branches also appear to be normal. The inferior vena cava was mildly enlarged, central venous pressure might be eleated. Doppler, no significant valvular abnormalities detected. Assessment of the left ventricular diastolic function appeared to be normal. IMPRESSION: 1. Normal global left ventricular systolic function with a mildly enlarged left ventricle. Left ventricular diastolic function appeared to be normal. 2. Trace to small pericardial effusion, no evidence of cardiac tamponade. 3 The right heart chambers, the right atrium and the right ventricle appeared to be mildly enlarged in limited views, but with preserved systolic function. There was no significant tricuspid regurgitation detected and the pulmonic valve also appeared to be normal. 4. The inferior vena cava was mildly enlarged, central venous pressure might be elevated.
[2019-01-16 11:23] LABS: DRVV SCREEN 46.3 SEC
[2019-01-16 11:48] LABS: PTT LUPUS TYPE ANTICOAG SCREEN 1.1 (0-1.2)
== END 2019-01-13 12:10 | disposition home or self-care (01) | DRG 45 ==
LOC: M ED 15:20 → M ED INP 15:21 → M PCU 19:55 → OBSVTOIN 20:44
PROVIDERS: ADMIT Internal Medicine; ATTEND Family Medicine
DX: I63.9 Cerebral infarction, unspecified (principal); I69.351 Hemiplegia and hemiparesis following cerebral infarction affecting right dominant side; I10 Essential (primary) hypertension; G62.9 Polyneuropathy, unspecified; E78.5 Hyperlipidemia, unspecified; M75.31 Calcific tendinitis of right shoulder; M19.011 Primary osteoarthritis, right shoulder; Z87.891 Personal history of nicotine dependence; F10.10 Alcohol abuse, uncomplicated; G89.29 Other chronic pain; Z79.899 Other long term (current) drug therapy; J30.1 Allergic rhinitis due to pollen; K02.9 Dental caries, unspecified; M54.5 Low back pain; M54.2 Cervicalgia

== ENCOUNTER 2019-06-08 07:44 | Outpatient (RCR) | payer MEDICAID ==
[~2019-06-08 07:44] MED LIST: AMIT50TA PO; ASPI81TAEC PO; ATOR1TAB21 PO; BACL10TA2 PO; CLOP75TA2 PO; GABA-1171 PO; LISI10TA4 PO; MULTCAP PO
== END 2019-07-03 ==
LOC: M OUTALCOH 07:44
PROVIDERS: ATTEND Psychiatry & Neurology Addiction Medicine
DX: Z03.89 Encounter for observation for other suspected diseases and conditions ruled out (principal)

== ENCOUNTER 2019-06-15 12:46 | Outpatient (RCR) | payer MEDICAID | END 2019-07-03 | LOC: M OUTALCOH 12:46 | PROVIDERS: ATTEND Psychiatry & Neurology Addiction Medicine | DX: Z03.89 Encounter for observation for other suspected diseases and conditions ruled out (principal) ==

== ENCOUNTER → 2019-06-18 | Outpatient (REF) | payer OTHER ==
[2019-06-18 12:56] LABS: BASO # 0.1 10^3/uL (0.0-0.2); BASO % 1.4 % (0.0-1.0); EOS # 0.5 10^3/uL (0.0-0.5); EOS % 4.7 % (0.0-3.0); HEMATOCRIT 45.1 % (42.0-52.0); HEMOGLOBIN 15.1 g/dl (13.5-17.5); LYMPH # 3.1 10^3/uL (1.5-5.0); LYMPH % 32.1 % (24.0-44.0); MEAN CORPUSCULAR HEMOGLOBIN 31.3 pg (27.0-33.0); MEAN CORPUSCULAR HGB CONC 33.5 g/dl (32.0-36.5); MEAN CORPUSCULAR VOLUME 93.6 fl (80.0-96.0); MONO % 10.1 % (0.0-5.0); NEUTROPHILS % 51.2 % (36.0-66.0); PLATELET COUNT, AUTOMATED 314 10^3/uL (150-450); RED BLOOD COUNT 4.82 10^6/uL (4.30-6.10); WHITE BLOOD COUNT 9.7 10^3/uL (4.0-10.0)
[2019-06-18 13:11] LABS: ALBUMIN 3.7 GM/DL (3.2-5.2); ALT/SGPT 27 U/L (12-78); BILIRUBIN,TOTAL 0.3 MG/DL (0.2-1.0); BLOOD UREA NITROGEN 5 MG/DL (7-18); CALCIUM LEVEL 8.8 MG/DL (8.5-10.1); CARBON DIOXIDE LEVEL 32 MEQ/L (21-32); CHLORIDE LEVEL 101 MEQ/L (98-107); CHOLESTEROL LEVEL 130 MG/DL (<200); CHOLESTEROL RISK RATIO 3.095 (<5); CREATININE FOR GFR 0.91 MG/DL (0.70-1.30); FREE T4 1.01 NG/DL (0.76-1.46); GLOMERULAR FILTRATION RATE > 60.0 (>56); GLUCOSE, FASTING 87 MG/DL (70-100); HDL CHOLESTEROL 42 MG/DL (>40); LDL CHOLESTEROL 57 MG/DL (<100); NON-HDL-C 88 MG/DL; POTASSIUM SERUM 4.4 MEQ/L (3.5-5.1); SODIUM LEVEL 137 MEQ/L (136-145); TOTAL PROTEIN 7.5 GM/DL (6.4-8.2); TRIGLYCERIDES LEVEL 155 MG/DL (<150)
[2019-06-18 13:13] LABS: TOTAL 25(OH) VITAMIN D 29.6 NG/ML (30.0-100.0)
[2019-06-18 14:37] LABS: HEMOGLOBIN A1c 6.1 %
== END ==
LOC: M SFHCADAM 08:04
PROVIDERS: ATTEND Physician Assistant Medical
DX: I10 Essential (primary) hypertension (principal); F17.210 Nicotine dependence, cigarettes, uncomplicated; E55.9 Vitamin D deficiency, unspecified; Z12.11 Encounter for screening for malignant neoplasm of colon; Z12.12 Encounter for screening for malignant neoplasm of rectum

== ENCOUNTER → 2020-07-28 | Outpatient (REF) | payer OTHER ==
[~2020-07-28] MED LIST changes: +ASPI-569 PO; -ASPI81TAEC PO; +LISI10TA22 PO; -LISI10TA4 PO
[2020-07-28 17:31] LABS: BASO # 0.1 10^3/uL (0.0-0.2); BASO % 1.2 % (0.0-1.0); EOS # 0.1 10^3/uL (0.0-0.5); EOS % 1.3 % (0.0-3.0); HEMATOCRIT 43.3 % (42.0-52.0); HEMOGLOBIN 14.6 g/dl (13.5-17.5); LYMPH # 2.1 10^3/uL (1.5-5.0); LYMPH % 22.3 % (24.0-44.0); MEAN CORPUSCULAR HEMOGLOBIN 35.3 pg (27.0-33.0); MEAN CORPUSCULAR HGB CONC 33.7 g/dl (32.0-36.5); MEAN CORPUSCULAR VOLUME 104.6 fl (80.0-96.0); MONO % 10.7 % (2.0-8.0); NEUTROPHILS % 63.5 % (36.0-66.0); PLATELET COUNT, AUTOMATED 277 10^3/uL (150-450); RED BLOOD COUNT 4.14 10^6/uL (4.30-6.10); WHITE BLOOD COUNT 9.4 10^3/uL (4.0-10.0)
[2020-07-28 18:08] LABS: ALBUMIN 3.5 GM/DL (3.2-5.2); ALT/SGPT 65 U/L (12-78); BILIRUBIN,TOTAL 0.3 MG/DL (0.2-1.0); BLOOD UREA NITROGEN 9 MG/DL (7-18); CALCIUM LEVEL 9.3 MG/DL (8.5-10.1); CARBON DIOXIDE LEVEL 28 MEQ/L (21-32); CHLORIDE LEVEL 101 MEQ/L (98-107); CHOLESTEROL LEVEL 195 MG/DL (<200); CHOLESTEROL RISK RATIO 2.267 (<5); CREATININE FOR GFR 0.64 MG/DL (0.70-1.30); GLOMERULAR FILTRATION RATE > 60.0 (>56); GLUCOSE, FASTING 125 MG/DL (70-100); HDL CHOLESTEROL 86 MG/DL (>40); LDL CHOLESTEROL 82 MG/DL (<100); NON-HDL-C 109 MG/DL; POTASSIUM SERUM 4.6 MEQ/L (3.5-5.1); SODIUM LEVEL 135 MEQ/L (136-145); TOTAL PROTEIN 7.5 GM/DL (6.4-8.2); TRIGLYCERIDES LEVEL 137 MG/DL (<150)
[2020-07-29 09:57] LABS: TOTAL 25(OH) VITAMIN D 31.2 NG/ML (30.0-100.0)
== END ==
LOC: M SFHCADAM 12:32
PROVIDERS: ATTEND Physician Assistant Medical
DX: I10 Essential (primary) hypertension (principal); R41.3 Other amnesia; M50.30 Other cervical disc degeneration, unspecified cervical region; E55.9 Vitamin D deficiency, unspecified

== ENCOUNTER → 2020-10-09 | Outpatient (CLI) | payer OTHER ==
--- NOTE | 2020-10-09 12:51 | REP ---
INDICATION: RIB PAIN ON LEFT SIDE. COMPARISON: None TECHNIQUE: This examination was completed at 10:47 a.m., however, it has been brought to my attention for interpretation at 12:37 p.m. the reason for the delay is unknown to me. Four views of the left ribs and frontal view of the chest. FINDINGS: Multiple views of the left ribs show no fracture or osseous lesion. The accompanying frontal view of the chest shows no cardiomegaly. There is a slight increase in the interstitial markings in the lung bases with slight bilateral CP angle blunting. IMPRESSION: 1. No evidence of rib fracture or destructive at osseous lesion. 2. Lung base findings as described above. There are no priors for comparison. Small bilateral pleural effusions cannot be ruled out. Consider follow-up with chest CT. <Electronically signed by Gutierrez Villatoro > 10/09/20 [id number]
== END ==
LOC: M ADAMS 10:52
PROVIDERS: ATTEND Physician Assistant Medical
DX: R07.81 Pleurodynia (principal)

== ENCOUNTER 2020-11-25 13:57 | Emergency (ER) | payer OTHER ==
[~2020-11-25] VITALS: Ht 182.9 cm; Wt 78.1 kg
[2020-11-25] MEDS ORDERED: LISI20TA33 PO (14:51)
[2020-11-25] MEDS ORDERED: HYDR-3713 PO (14:51)
[2020-11-25] MEDS ORDERED: NS 1,000 ML IV ONE (16:30)
[2020-11-25] MEDS ORDERED: ALBUTEROL SULFATE 2.5 MG/0.5 ML INH NEB SOLN NEB SCH (16:30)
[2020-11-25] MEDS ORDERED: methylPREDNISolone 125MG 2ML VIAL IV ONE (16:30)
[2020-11-25] MEDS ORDERED: FAMOTIDINE INJ 20MG/2ML VIAL (S0028 PER 1) IVP ONE (16:30)
[2020-11-25 16:39] LABS: HEMATOCRIT 43.7 % (42.0-52.0); HEMOGLOBIN 14.6 g/dl (13.5-17.5); MEAN CORPUSCULAR HEMOGLOBIN 34.8 pg (27.0-33.0); MEAN CORPUSCULAR HGB CONC 33.4 g/dl (32.0-36.5); MEAN CORPUSCULAR VOLUME 104.3 fl (80.0-96.0); PLATELET COUNT, AUTOMATED 298 10^3/uL (150-450); RED BLOOD COUNT 4.19 10^6/uL (4.30-6.10)
[2020-11-25 16:51] LABS: ALBUMIN 3.6 GM/DL (3.2-5.2); ALT/SGPT 52 U/L (12-78); BILIRUBIN,DIRECT 0.2 MG/DL (0.0-0.2); BILIRUBIN,TOTAL 0.6 MG/DL (0.2-1.0); BLOOD UREA NITROGEN 4 MG/DL (7-18); CALCIUM LEVEL 8.8 MG/DL (8.5-10.1); CARBON DIOXIDE LEVEL 28 MEQ/L (21-32); CHLORIDE LEVEL 102 MEQ/L (98-107); CREATININE FOR GFR 0.73 MG/DL (0.70-1.30); GLOMERULAR FILTRATION RATE > 60.0 (>56); GLUCOSE, FASTING 88 MG/DL (70-100); POTASSIUM SERUM 4.4 MEQ/L (3.5-5.1); SODIUM LEVEL 135 MEQ/L (136-145); TOTAL PROTEIN 7.7 GM/DL (6.4-8.2)
[2020-11-25] MEDS ORDERED: ISOVUE-370 76% 100ML VIAL As Ordered ONE (17:03)
[2020-11-25] MEDS ORDERED: ALBUTEROL 90 MCG/ACT 8GM HFA INHALER INH ONE (17:05)
--- NOTE | 2020-11-25 17:19 | REP ---
INDICATION: DYSPNEA/COUGH COMPARISON: 01/11/2019 TECHNIQUE: PA and lateral. FINDINGS: The mediastinum and cardiac silhouette are normal. The lung vogel are clear and without acute consolidation, effusion, or pneumothorax. The skeletal structures are intact and normal. IMPRESSION: No acute cardiopulmonary process. <Electronically signed by Laurent Pabon > 11/25/20 [id number]
[2020-11-25 17:24] LABS: ERYTHROCYTE SEDIMENTATION RATE 7 mm/hr (0-20)
[2020-11-25 17:32] VITALS: BP 119/70
--- NOTE | 2020-11-25 17:34 | REPVR ---
PROCEDURE INFORMATION: Exam: CT Neck With Contrast Exam date and time: 11/25/2020 5:08 PM Age: 60 years old Clinical indication: Neck pain; Additional info: Teeth pulled yest/swelling into neck TECHNIQUE: Imaging protocol: Computed tomography images of the neck with contrast. Radiation optimization: All CT scans at this facility use at least one of these dose optimization techniques: automated exposure control; mA and/or kV adjustment per patient size (includes targeted exams where dose is matched to clinical indication); or iterative reconstruction. Contrast material: ISOVUE 370; Contrast volume: 75 ml; Contrast route: INTRAVENOUS (IV); COMPARISON: MRI-Spine,Cervical without con 12/16/2017 1:15 PM FINDINGS: Nasopharynx: Unremarkable. Dental: There are numerous left mandibular empty tooth sockets consistent with history of recent extraction. There are multiple caries noted in remaining teeth. Oropharynx: Unremarkable. No significant tonsillar enlargement. Hypopharynx: Unremarkable. Larynx: Unremarkable. Normal epiglottis. Retropharyngeal space: Unremarkable. Submandibular/Parotid glands: Unremarkable Thyroid: Normal. No enlarged or calcified nodules. Lymph nodes: Unremarkable. No lymphadenopathy. Trachea: Visualized trachea is unremarkable. Lungs: Unremarkable Bones/joints: There is spondylosis and disc space narrowing in the cervical spine. Soft tissues: There are inflammatory changes of the subcutaneous fat in the facial and submandibular region more extensive on the left. This extends into the anterior lower neck. It does not extend to the mediastinum. There is no focal fluid collection to indicate an abscess. IMPRESSION: 1. Multiple left mandibular tooth extractions. There is facial edema consistent with cellulitis. This extends into the submandibular and anterior neck regions and should be correlated for clinical appearance of Brijesh angina 2. No soft tissue abscess. Electronically signed by: Lamberto Espinal On 11/25/2020 17:34:08 PM
[2020-11-25] MEDS ORDERED: PIPERACILLIN/TAZOBACTAM SOD 3.375 GM in D5W MINI-BAG PLUS 50 ML IV ONE (18:20)
[2020-11-25] MEDS ORDERED: AUGM875T28 PO (20:02)
[2020-11-25] MEDS ORDERED: PRED20TA PO (20:02)
== END 2020-11-25 20:38 | disposition home or self-care (01) ==
LOC: M ED 13:57
DX: L03.211 Cellulitis of face (principal); I10 Essential (primary) hypertension; R06.02 Shortness of breath; Z86.73 Personal history of transient ischemic attack (TIA), and cerebral infarction without residual deficits; F17.200 Nicotine dependence, unspecified, uncomplicated; F12.10 Cannabis abuse, uncomplicated; Z79.82 Long term (current) use of aspirin; Z79.899 Other long term (current) drug therapy; Z91.030 Bee allergy status
CPT/HCPCS: 70491; 71046; 80048; 80076; 85027; 85652; 86140; 94640; 94664; 96365; 99284; J2543; J2930; Q9967

== ENCOUNTER 2021-01-18 05:16 | Inpatient (IN) | payer OTHER ==
[~2021-01-18] VITALS: Ht 182.9 cm; Wt 84.2 kg
[2021-01-18] VITALS (48 sets, daily range): BP systolic 60–134; BP diastolic 40–81
[~2021-01-18 05:16] MED LIST changes: +AUGM875T28 PO; +HYDR-3713 PO; +LISI20TA33 PO; +PRED20TA PO
[2021-01-18] MEDS ORDERED: ROCURONIUM BROMIDE 50 MG/5 ML VIAL ONE (05:17)
[2021-01-18] MEDS ORDERED: ETOMIDATE INJ 20MG/10ML VIAL ONE (05:17)
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
--- OUTSIDE RECORDS SUMMARY | 2021-01-18 05:21 | CCD ---
Author Author [facility] Organization [facility] Address Unknown Phone Unavailable Care Team Providers Care Print Producer Name Role Phone Nereyda Hunt Unavailable PROBLEMS Type Condition ICD9-CM Code [id number] Code Onset Dates Condition S tatus W/U Status Risk SNOMED Code Notes Problem Essential hypertension I10 Active confirmed 68446213 Problem Vitamin D deficiency E55.9 Active confirmed 31359311 Problem Cervical disc displacement M50.20 Active confirmed 724319054 Problem Marijuana use, continuous F12.90 Active confirmed 18898599 Problem Memory impairment R41.3 Active confirmed 38 4820605 Problem Cerebrovascular accident (CVA) of left thalamus I6 3.9 Active confirmed 985583882 Problem Cigarette nicotine dependence without complication F17.210 Active confirmed 74197659 Problem Osteoarthritis of spine with radiculopathy, lumbar region M47.26 Active confirmed 993222722 Problem Degenerative disc disease, cervical M50.30 Acti ve confirmed 24646358 Problem Cervical spondylosis with radiculopathy M47.22 Active confirmed 537208678 Problem History of alcohol abuse Z87.898 Active confirmed 840491153 ALLERGIES Allergen (clinical drug ingredient) Drug/Non Drug Allergy do cumented on EMR Reaction Allergy Type Onset Date Status Bee Sting swells up Drug Allergy Active ENCOUNTERS from 1960 to 2021-01-15 Encounter Location Date Provider Diagnosis [address] [phone] [place] [address] 08 Jan, 2021 Nereyda Hunt IMMUNIZATIONS Vaccine Route [...] Notes Total Score: 3 Interpretation: Alcohol Education Mandaeism: Question Answer Notes Mandaeism 08 L[employer] Day Sexual Hx: Question Answer Notes Had sex [...] Once a day for 30 Not-Taking Drisdol 90784 UNIT 1 capsule Orally twice weekly for 30 day(s) Jul, Active Plavix 75 MG 1 tablet Orally Once a day for 30 day(s) Active PROCEDURES No Information RESULTS No Results REASON FOR VISIT BAD TOOTH MEDICAL (GENERAL) HISTORY Type Description Date Medical [...] Details Provider Name:Nereyda Hunt, 2021-03-02 10:30:00 AM, [address] [address], , [place], [address], Insurance Providers Payer Name Payer Address Payer Phone Insured Name Patient Relati onship to Insured Coverage Start Date Coverage End Date [facility] COMM[facility]AN [facility] [address] [facility] [phone] LUIGI MYRICK self
--- OUTSIDE RECORDS SUMMARY | 2021-01-18 05:21 | CCD ---
Author Author [facility] Organization [facility] Address Unknown Phone Unavailable Care Team Providers Care Office Assistant Receptionist Name Role Phone Nereyda Hunt Unavailable PROBLEMS Type Condition ICD9-CM Code GPT15-YN Code Onset Dates Condition S tatus W/U Status Risk SNOMED Code Notes Problem Essential hypertension I10 Active confirmed 02269897 Problem Vitamin D deficiency E55.9 Active confirmed 50100145 Problem Cervical disc displacement M50.20 Active confirmed 481028343 Problem Marijuana use, continuous F12.90 Active confirmed 41731847 Problem Memory impairment R41.3 Active confirmed 38 0885539 Problem Cerebrovascular accident (CVA) of left thalamus I6 3.9 Active confirmed 179428585 Problem Cigarette nicotine dependence without complication F17.210 Active confirmed 55922006 Problem Osteoarthritis of spine with radiculopathy, lumbar region M47.26 Active confirmed 643521818 Problem Degenerative disc disease, cervical M50.30 Acti ve confirmed 25348868 Problem Cervical spondylosis with radiculopathy M47.22 Active confirmed 465090509 Problem History of alcohol abuse Z87.898 Active confirmed 874617681 ALLERGIES Allergen (clinical drug ingredient) Drug/Non Drug Allergy do cumented on EMR Reaction Allergy Type Onset Date Status bees swells up Non Drug Allergy Active ENCOUNTERS from 1960 to 2020-12-19 Encounter Location Date Provider Diagnosis [facility] [address] [place] [address] 14 Dec, 2020 Nereyda Hunt IMMUNIZATIONS Vaccine Route Administration Date [...] Notes Total Score: 3 Interpretation: Alcohol Education Scientology: Question Answer Notes Scientology 08 Baptism Sexual Hx: Question Answer Notes Had sex [...] Once a day for 30 Not-Taking Drisdol 30368 UNIT 1 capsule Orally twice weekly for 30 day(s) Jul, Active Plavix 75 MG 1 tablet Orally Once a day for 30 day(s) Active PROCEDURES No Information RESULTS No Results REASON FOR VISIT lefta a VM allergic reaction MEDICAL (GENERAL) HISTORY Type Description Date Medical [...] Details Provider Name:Nereyda Hunt, 2021-03-02 10:30:00 AM, [address] [address], , [place], [address], Insurance Providers Payer Name Payer Address Payer Phone Insured Name Patient Relati onship to Insured Coverage Start Date Coverage End Date [facility] COMMUNITY PLAN [facility] [address] [facility] [phone] LUIGI MYRICK self
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
--- OUTSIDE RECORDS SUMMARY | 2021-01-18 05:21 | CCD ---
Author Author [facility] Organization [facility] Address Unknown Phone Unavailable Care Team Providers Care Ui Application Developer Name Role Phone Nereyda Hunt Unavailable PROBLEMS Type Condition ICD9-CM Code [id number] Code Onset Dates Condition S tatus W/U Status Risk SNOMED Code Notes Problem Essential hypertension I10 Active confirmed 39907080 Problem Vitamin D deficiency E55.9 Active confirmed 92372318 Problem Cervical disc displacement M50.20 Active confirmed 369965811 Problem Marijuana use, continuous F12.90 Active confirmed 08749231 Problem Memory impairment R41.3 Active confirmed 38 8536031 Problem Cerebrovascular accident (CVA) of left thalamus I6 3.9 Active confirmed 886669261 Problem Cigarette nicotine dependence without complication F17.210 Active confirmed 67651240 Problem Osteoarthritis of spine with radiculopathy, lumbar region M47.26 Active confirmed 776903442 Problem Degenerative disc disease, cervical M50.30 Acti ve confirmed 78522239 Problem Cervical spondylosis with radiculopathy M47.22 Active confirmed 541240013 Problem History of alcohol abuse Z87.898 Active confirmed 231094827 ALLERGIES Allergen (clinical drug ingredient) Drug/Non Drug Allergy do cumented on EMR Reaction Allergy Type Onset Date Status bees swells up Non Drug Allergy Active ENCOUNTERS from 1962 to 2020-12-15 Encounter Location Date Provider Diagnosis [facility] [address] [place] [id number] Dec, 2020 Nereyda Hunt Facial swelling R22.0 IMMUNIZATIONS Vaccine Route Administration Date Status Pneumococcal [...] Notes Total Score: 3 Interpretation: Alcohol Education Sikhism: Question Answer Notes Sikhism 08 Gnosticist Sexual Hx: Question Answer Notes Had sex [...] Once a day for 30 Not-Taking Drisdol 25609 UNIT 1 capsule Orally twice weekly for 30 day(s) Jul, Active Plavix 75 MG 1 tablet Orally Once a day for 30 day(s) Active PROCEDURES No Information RESULTS No Results REASON FOR VISIT reaction MEDICAL (GENERAL) HISTORY Type Description Date [...] Notes Treatment Notes Treatm ent Clinical Notes Dec, Facial swelling (ICD-10 - R22.0) PLAN OF TREATMENT Next Appt Details Provider Name:Nereyda Hunt, 2021-03-02 10:30:00 AM, [address] , [place], [address], Insurance Providers Payer Name Payer Address Payer Phone Insured Name Patient Relati onship to Insured Coverage Start Date Coverage End Date [facility] [place] [address] [facility] [phone] LUIGI MYRICK self
--- OUTSIDE RECORDS SUMMARY | 2021-01-18 05:21 | CCD ---
Author Author [facility] Organization [facility] Address Unknown Phone Unavailable Support Name Relationship Address Phone KATERINA MYRICK Next Of Kin [phone] [facility] [address] [place] [phone] UNEMPLOYED Next Of Kin N/A [place] [address] UE Next Of Kin Unknown Unavailable COLETTE MYRICK Next Of Kin [id number] [facility] [address] [place] [address] COLETTE MYRICK ECON [address] [facility] [address] [place], [place] [address] Unavailable Re-disclosure Warning The records that you are about to access may contain information from federally-assisted alcohol or drug abuse programs. If such information is present, then the following federally mandated warning applies: This information has been disclosed to you from records protected by federal confidentiality rules (42 CFR part 2). The federal rules prohibit you from making any further disclosure of this information unless further disclosure is expressly permitted by the written consent of the person to whom it pertains or as otherwise permitted by 42 CFR part 2. A general authorization for the release of medical or other information is NOT sufficient for this purpose. The Federal rules restrict any use of the information to criminally investigate or prosecute any alcohol or drug abuse patient.The records that you are about to access may contain highly sensitive health information, the redisclosure of which is protected by Article 27-F of the [facility] Public Health law. If you continue you may have access to information: Regarding HIV / AIDS; Provided by facilities licensed or operated by the [facility] Office of Mental Health; or Provided by the [facility] Office for People With Developmental Disabilities. If such information is present, then the following [facility] mandated warning applies: This information has been disclosed to you from confidential records which are protected by state law. State law prohibits you from making any further disclosure of this information without the specific written consent of the person to whom it pertains, or as otherwise permitted by law. Any unauthorized further disclosure in violation of state law may result in a fine or custodial sentence or both. A general authorization for the release of medical or other information is NOT sufficient authorization for further disc losure. Encounters Encounter Providers Location Date Indications Data Source(s ) Unknown [address] [facility] [address] 01/12/2021 12:00:00 AM EDT [facility]CW1 ([facility] Unknown [address] [facility] [place] [address] 01/09/2021 12:00:00 AM EDT eCW1 ([facility]) Unknown [address] [facility] [place] [address] 12/16/2020 12:00:00 AM EDT eCW1 ([facility]) Unknown [address] [facility] [place] [address] 12/12/2020 12:00:00 AM EDT eCW1 ([facility]) Outpatient [address] [facility] [place] [address] 11/03/2020 12:00:00 AM EDT eCW1 ([facility]) Outpatient [address] [facility] [place] [address] 10/10/2020 12:00:00 AM EDT eCW1 ([facility]) Unknown [address] [facility] [place] [address] 10/10/2020 12:00:00 AM EDT eCW1 ([facility]) Unknown [address] [facility] [place] [address] 10/08/2020 12:00:00 AM EDT eCW1 ([facility]) Unknown [address] [facility] [place] [address] 08/08/2020 12:00:00 AM EDT eCW1 ([facility]) Unknown [address] [facility] [place] [address] 08/04/2020 12:00:00 AM EDT eCW1 ([facility]) Outpatient [address] [facility] [place] [address] 07/04/2020 12:00:00 AM EDT eCW1 ([facility]) Unknown [address] [facility] [place] [address] 06/12/2020 12:00:00 AM EST eCW1 ([facility]) Unknown [address] [facility] [place] [address] 01/03/2020 12:00:00 AM EDT eCW1 ([facility]) Immunizations Vaccine Date Status Description Data Source(s) COVID-19 VACCINE Moderna 08/06/2020 12:00:00 AM EDT completed [facility] Vaccine Series Complete: YESThis Data wa s Submitted to [facility]. COVID-19 VACC,MRNA(MODERNA)/PF 08/06/2020 12:00:00 AM EDT completed [facility] COVID-19 VACCINE Moderna 07/05/2020 12:00:00 AM EDT completed [facility] Vaccine Series Complete: NOThis Data was Submitted to [facility]. COVID-19 VACCINE, MRNA-[id number], LNP-S (MODERNA)/PF 07/05/2020 1 2:00:00 AM EDT completed [facility] Medications Medication Brand Name Start Date Product Form Dose Route Admi nistrative Instructions Pharmacy Instructions Status Indications Reaction Description Data Source(s) 75 mg 12/16/2020 12:00:00 AM EDT tablet 30 TAKE ONE TABLET BY MOUTH EVERY DAY TAKE ONE TABLET BY MOUTH EVERY DAY SOLD: 01/04/2021 [facility] 20 mg 11/26/2020 12:00:00 AM EDT tablet 15 TAKE THREE TABLETS BY MOUTH EVERY DAY TAKE THREE TABLETS BY MOUTH EVERY DAY SOLD: 11/26/2020 [facility] Amoxicillin 875 MG / Clavulanate 125 MG Oral Tablet 87 5-125 mg AMOXICILLIN/POTASSIUM CLAV 11/26/2020 12:00:00 AM EDT tablet 20 TAKE ONE TABLET BY MOUTH TWICE A DAY TAKE ONE TABLET BY MOUTH TWICE A DAY SOLD: 11/26/2020 [facility] Acetaminophen 325 MG / Hydrocodone Bitartrate 5 MG Ora l Tablet 5-325 mg HYDROCODONE/ACETAMINOPHEN 11/24/2020 12:00:00 AM EDT tablet 16 TAKE 1 TABLET BY MOUTH EVERY 6 HOURS NEEDED FOR PAIN MAXIMUM DAILY DOSE = 4 TABLETS TAKE 1 TABLET BY MOUTH EVERY 6 HOURS NEEDED FOR PAIN MAXIMUM DAILY DOSE = 4 TABLETS SOLD: 11/24/2020 [facility] 20 mg 09/09/2020 12:00:00 AM EDT tablet 30 TAKE ONE TABLET BY MOUTH EVERY DAY TAKE ONE TABLET BY MOUTH EVERY DAY SOLD: 01/04/2021 [facility] 20 mg 09/09/2020 12:00:00 AM EDT tablet 30 TAKE ONE TABLET BY MOUTH EVERY DAY TAKE ONE TABLET BY MOUTH EVERY DAY SOLD: 10/23/2020 [facility] 20 mg 09/09/2020 12:00:00 AM EDT tablet 30 TAKE ONE TABLET BY MOUTH EVERY DAY TAKE ONE TABLET BY MOUTH EVERY DAY SOLD: 09/18/2020 [facility] 20 mg 09/09/2020 12:00:00 AM EDT tablet 30 TAKE ONE TABLET BY MOUTH EVERY DAY TAKE ONE TABLET BY MOUTH EVERY DAY SOLD: 11/21/2020 [facility] 75 mg 08/09/2020 12:00:00 AM EDT tablet 30 TAKE ONE TABLET BY MOUTH EVERY DAY TAKE ONE TABLET BY MOUTH EVERY DAY SOLD: 11/21/2020 [facility] 50 mg 08/09/2020 12:00:00 AM EDT tablet 30 TAKE ONE TABLET BY MOUTH AT BEDTIME NEEDED TAKE ONE TABLET BY MOUTH AT BEDTIME NEEDED SOLD: [facility] 75 mg 08/09/2020 12:00:00 AM EDT tablet 30 TAKE ONE TABLET BY MOUTH EVERY DAY TAKE ONE TABLET BY MOUTH EVERY DAY SOLD: 09/18/2020 [facility] 50 mg 08/09/2020 12:00:00 AM EDT tablet 30 TAKE ONE TABLET BY MOUTH AT BEDTIME NEEDED TAKE ONE TABLET BY MOUTH AT BEDTIME NEEDED SOLD: [facility] 75 mg 08/09/2020 12:00:00 AM EDT tablet 30 TAKE ONE TABLET BY MOUTH EVERY DAY TAKE ONE TABLET BY MOUTH EVERY DAY SOLD: 10/23/2020 [facility] 50 mg 08/09/2020 12:00:00 AM EDT tablet 30 TAKE ONE TABLET BY MOUTH AT BEDTIME NEEDED TAKE ONE TABLET BY MOUTH AT BEDTIME NEEDED SOLD: [facility] 75 mg 08/09/2020 12:00:00 AM EDT tablet 30 TAKE ONE TABLET BY MOUTH EVERY DAY TAKE ONE TABLET BY MOUTH EVERY DAY SOLD: 08/13/2020 [facility] 50 mg 08/09/2020 12:00:00 AM EDT tablet 30 TAKE ONE TABLET BY MOUTH AT BEDTIME NEEDED TAKE ONE TABLET BY MOUTH AT BEDTIME NEEDED SOLD: [facility] 50 mg 08/09/2020 12:00:00 AM EDT tablet 30 TAKE ONE TABLET BY MOUTH AT BEDTIME NEEDED TAKE ONE TABLET BY MOUTH AT BEDTIME NEEDED SOLD: [facility] atorvastatin 40 MG Oral Tablet ATORVASTATIN CALCIUM 07/07/2020 1 2:00:00 AM EDT tablet 30 TAKE ONE TABLET BY MOUTH AT BEDT FRANDY TAKE ONE TABLET BY MOUTH AT BEDTIME SOLD: 01/04/2021 [facility] atorvastatin 40 MG Oral Tablet ATORVASTATIN CALCIUM 07/07/2020 1 2:00:00 AM EDT tablet 30 TAKE ONE TABLET BY MOUTH AT BEDT FRANDY TAKE ONE TABLET BY MOUTH AT BEDTIME SOLD: 10/23/2020 [facility] atorvastatin 40 MG Oral Tablet ATORVASTATIN CALCIUM 07/07/2020 1 2:00:00 AM EDT tablet 30 TAKE ONE TABLET BY MOUTH AT BEDT FRANDY TAKE ONE TABLET BY MOUTH AT BEDTIME SOLD: 08/13/2020 [facility] atorvastatin 40 MG Oral Tablet ATORVASTATIN CALCIUM 07/07/2020 1 2:00:00 AM EDT tablet 30 TAKE ONE TABLET BY MOUTH AT BEDT FRANDY TAKE ONE TABLET BY MOUTH AT BEDTIME SOLD: 11/21/2020 [facility] atorvastatin 40 MG Oral Tablet ATORVASTATIN CALCIUM 07/07/2020 1 2:00:00 AM EDT tablet 30 TAKE ONE TABLET BY MOUTH AT BEDT FRANDY TAKE ONE TABLET BY MOUTH AT BEDTIME SOLD: 07/08/2020 [facility] atorvastatin 40 MG Oral Tablet ATORVASTATIN CALCIUM 07/07/2020 1 2:00:00 AM EDT tablet 30 TAKE ONE TABLET BY MOUTH AT BEDT FRANDY TAKE ONE TABLET BY MOUTH AT BEDTIME SOLD: 09/18/2020 [facility] Lisinopril 20 MG Oral Tablet LISINOPRIL 07/05/2020 12:00:00 AM EDT tab let 30 TAKE ONE TABLET BY MOUTH EVERY DAY TAKE ONE TABLET BY MOUTH EVERY DAY SOLD: 08/13/2020 [facility] Lisinopril 20 MG Oral Tablet LISINOPRIL 07/05/2020 12:00:00 AM EDT tab let 30 TAKE ONE TABLET BY MOUTH EVERY DAY TAKE ONE TABLET BY MOUTH EVERY DAY SOLD: 07/07/2020 [facility] 10 mg 06/12/2020 12:00:00 AM EST tablet 30 TAKE ONE TABLET BY MOUTH ONCE DAILY TAKE ONE TABLET BY MOUTH ONCE DAILY SOLD: 06/14/2020 [facility] 75 mg 05/05/2020 12:00:00 AM EST tablet 30 TAKE ONE TABLET BY MOUTH EVERY DAY TAKE ONE TABLET BY MOUTH EVERY DAY SOLD: 05/17/2020 [facility] 75 mg 05/05/2020 12:00:00 AM EST tablet 30 TAKE ONE TABLET BY MOUTH EVERY DAY TAKE ONE TABLET BY MOUTH EVERY DAY SOLD: 07/08/2020 [facility] 75 mg 05/05/2020 12:00:00 AM EST tablet 30 TAKE ONE TABLET BY MOUTH EVERY DAY TAKE ONE TABLET BY MOUTH EVERY DAY SOLD: 06/14/2020 [facility] 75 mg 03/12/2020 12:00:00 AM EST tablet 24 TAKE ONE TABLET BY MOUTH EVERY DAY TAKE ONE TABLET BY MOUTH EVERY DAY SOLD: 03/13/2020 [facility] 75 mg 03/12/2020 12:00:00 AM EST tablet 30 TAKE ONE TABLET BY MOUTH EVERY DAY TAKE ONE TABLET BY MOUTH EVERY DAY SOLD: 04/08/2020 [facility] 50 mg 01/28/2020 12:00:00 AM EDT tablet 30 TAKE ONE TABLET BY MOUTH AT BEDTIME NEEDED TAKE ONE TABLET BY MOUTH AT BEDTIME NEEDED SOLD: [facility] 50 mg 01/28/2020 12:00:00 AM EDT tablet 30 TAKE ONE TABLET BY MOUTH AT BEDTIME NEEDED TAKE ONE TABLET BY MOUTH AT BEDTIME NEEDED SOLD: [facility] 50 mg 01/28/2020 12:00:00 AM EDT tablet 30 TAKE ONE TABLET BY MOUTH AT BEDTIME NEEDED TAKE ONE TABLET BY MOUTH AT BEDTIME NEEDED SOLD: [facility] 50 mg 01/28/2020 12:00:00 AM EDT tablet 30 TAKE ONE TABLET BY MOUTH AT BEDTIME NEEDED TAKE ONE TABLET BY MOUTH AT BEDTIME NEEDED SOLD: [facility] 50 mg 01/28/2020 12:00:00 AM EDT tablet 30 TAKE ONE TABLET BY MOUTH AT BEDTIME NEEDED TAKE ONE TABLET BY MOUTH AT BEDTIME NEEDED SOLD: [facility] 50 mg 01/28/2020 12:00:00 AM EDT tablet 30 TAKE ONE TABLET BY MOUTH AT BEDTIME NEEDED TAKE ONE TABLET BY MOUTH AT BEDTIME NEEDED SOLD: [facility] atorvastatin 40 MG Oral Tablet ATORVASTATIN CALCIUM 12/25/2019 1 2:00:00 AM EDT tablet 30 TAKE ONE TABLET BY MOUTH AT BEDT FRANDY TAKE ONE TABLET BY MOUTH AT BEDTIME SOLD: 02/01/2020 [facility] atorvastatin 40 MG Oral Tablet ATORVASTATIN CALCIUM 12/25/2019 1 2:00:00 AM EDT tablet 30 TAKE ONE TABLET BY MOUTH AT BEDT FRANDY TAKE ONE TABLET BY MOUTH AT BEDTIME SOLD: 05/17/2020 [facility] atorvastatin 40 MG Oral Tablet ATORVASTATIN CALCIUM 12/25/2019 1 2:00:00 AM EDT tablet 30 TAKE ONE TABLET BY MOUTH AT BEDT FRANDY TAKE ONE TABLET BY MOUTH AT BEDTIME SOLD: 04/08/2020 [facility] atorvastatin 40 MG Oral Tablet ATORVASTATIN CALCIUM 12/25/2019 1 2:00:00 AM EDT tablet 30 TAKE ONE TABLET BY MOUTH AT BEDT FRANDY TAKE ONE TABLET BY MOUTH AT BEDTIME SOLD: 01/01/2020 [facility] atorvastatin 40 MG Oral Tablet ATORVASTATIN CALCIUM 12/25/2019 1 2:00:00 AM EDT tablet 30 TAKE ONE TABLET BY MOUTH AT BEDT FRANDY TAKE ONE TABLET BY MOUTH AT BEDTIME SOLD: 06/14/2020 [facility] atorvastatin 40 MG Oral Tablet ATORVASTATIN CALCIUM 12/25/2019 1 2:00:00 AM EDT tablet 30 TAKE ONE TABLET BY MOUTH AT BEDT FRANDY TAKE ONE TABLET BY MOUTH AT BEDTIME SOLD: 03/04/2020 [facility] 10 mg 12/18/2019 12:00:00 AM EDT tablet 30 TAKE ONE TABLET BY MOUTH EVERY DAY TAKE ONE TABLET BY MOUTH EVERY DAY SOLD: 01/01/2020 [facility] 10 mg 12/18/2019 12:00:00 AM EDT tablet 30 TAKE ONE TABLET BY MOUTH EVERY DAY TAKE ONE TABLET BY MOUTH EVERY DAY SOLD: 03/04/2020 [facility] 10 mg 12/18/2019 12:00:00 AM EDT tablet 30 TAKE ONE TABLET BY MOUTH EVERY DAY TAKE ONE TABLET BY MOUTH EVERY DAY SOLD: 05/17/2020 [facility] 10 mg 12/18/2019 12:00:00 AM EDT tablet 30 TAKE ONE TABLET BY MOUTH EVERY DAY TAKE ONE TABLET BY MOUTH EVERY DAY SOLD: 04/08/2020 [facility] 10 mg 12/18/2019 12:00:00 AM EDT tablet 30 TAKE ONE TABLET BY MOUTH EVERY DAY TAKE ONE TABLET BY MOUTH EVERY DAY SOLD: 02/01/2020 [facility] 10 mg 12/18/2019 12:00:00 AM EDT tablet 30 TAKE ONE TABLET BY MOUTH EVERY DAY TAKE ONE TABLET BY MOUTH EVERY DAY SOLD: 05/27/2020 [facility] 10 mg 11/19/2019 12:00:00 AM EDT tablet 30 TAKE ONE TABLET BY MOUTH EVERY DAY TAKE ONE TABLET BY MOUTH EVERY DAY SOLD: 11/20/2019 [facility] 10 mg 10/17/2019 12:00:00 AM EDT tablet 90 TAKE ONE TABLET BY MOUTH THREE TIMES A DAY NEEDED TAKE ONE TABLET BY MOUTH THREE TIMES A DAY NEEDED S OLD: 01/01/2020 [facility] 10 mg 10/17/2019 12:00:00 AM EDT tablet 90 TAKE ONE TABLET BY MOUTH THREE TIMES A DAY NEEDED TAKE ONE TABLET BY MOUTH THREE TIMES A DAY NEEDED S OLD: 04/08/2020 [facility] 10 mg 10/17/2019 12:00:00 AM EDT tablet 90 TAKE ONE TABLET BY MOUTH THREE TIMES A DAY NEEDED TAKE ONE TABLET BY MOUTH THREE TIMES A DAY NEEDED S OLD: 11/20/2019 [facility] 10 mg 10/17/2019 12:00:00 AM EDT tablet 90 TAKE ONE TABLET BY MOUTH THREE TIMES A DAY NEEDED TAKE ONE TABLET BY MOUTH THREE TIMES A DAY NEEDED S OLD: 02/01/2020 [facility] 10 mg 10/17/2019 12:00:00 AM EDT tablet 90 TAKE ONE TABLET BY MOUTH THREE TIMES A DAY NEEDED TAKE ONE TABLET BY MOUTH THREE TIMES A DAY NEEDED S OLD: 03/04/2020 [facility] 75 mg 08/14/2019 12:00:00 AM EDT tablet 30 TAKE ONE TABLET BY MOUTH EVERY DAY TAKE ONE TABLET BY MOUTH EVERY DAY SOLD: 01/01/2020 [facility] 75 mg 08/14/2019 12:00:00 AM EDT tablet 30 TAKE ONE TABLET BY MOUTH EVERY DAY TAKE ONE TABLET BY MOUTH EVERY DAY SOLD: 11/20/2019 [facility] 75 mg 08/14/2019 12:00:00 AM EDT tablet 30 TAKE ONE TABLET BY MOUTH EVERY DAY TAKE ONE TABLET BY MOUTH EVERY DAY SOLD: 02/01/2020 [facility] 50 mg 07/17/2019 12:00:00 AM EDT tablet 30 TAKE 1 TABLET BY MOUTH BEFORE BEDTIME NEEDED TAKE 1 TABLET BY MOUTH BEFORE BEDTIME NEEDED SOLD: 01/01/2020 [facility] 50 mg 07/17/2019 12:00:00 AM EDT tablet 30 TAKE 1 TABLET BY MOUTH BEFORE BEDTIME NEEDED TAKE 1 TABLET BY MOUTH BEFORE BEDTIME NEEDED SOLD: 11/20/2019 [facility] 40 mg 06/22/2019 12:00:00 AM EDT tablet 30 TAKE ONE TABLET BY MOUTH AT BEDTIME TAKE ONE TABLET BY MOUTH AT BEDTIME SOLD: 11/20/2019 [facility] Insurance Providers Payer name Policy type / Coverage type Policy ID Covered republican ID Covered republican's relationship to sandoval Policy Sandoval Plan Information [facility] [id number] SP [id number] [facility] [id number] SP [id number] [facility] [id number] SP [id number] [facility] [id number] S [id number] [facility] [id number] [facility] [id number] [facility] [id number] [facility] [id number] [facility]-Medicaid [id number] ANSI-Medicaid [id number] ANSI-Medicaid [id number] ANSI-Medicaid [id number] [facility] Commercial [id number] Self [id number] ANSI-Medicaid [id number] ANSI-Medicaid [id number] ANSI-Medicaid [id number] ANSI-Medicaid [id number] ANSI-Medicaid [id number] ANSI-Medicaid [id number] ANSI-Medicaid [id number] ANSI-Medicaid [id number] ANSI-Medicaid [id number] ANSI-Medicaid [id number] ANSI-Medicaid [id number] ANSI-Medicaid [id number] ANSI-Medicaid [id number] ANSI-Medicaid [id number] ANSI-Medicaid [id number] ANSI-Medicaid [id number] ANSI-Medicaid [id number] ANSI-Medicaid [id number] ANSI-Medicaid [id number] ANSI-Medicaid [id number] ANSI-Medicaid [id number] ANSI-Medicaid [id number] ANSI-Medicaid [id number] ANSI-Medicaid [id number] ANSI-Medicaid [id number] ANSI-Medicaid [id number] ANSI-Medicaid [id number] ANSI-Medicaid [id number] ANSI-Medicaid [id number] ANSI-Medicaid [id number] ANSI-Medicaid [id number] ANSI-Medicaid [id number] ANSI-Medicaid [id number] ANSI-Medicaid [id number] ANSI-Medicaid [id number] ANSI-Medicaid [id number] ANSI-Medicaid [id number] [facility] [id number] [facility] [id number] [facility] [id number] MEDICAID M [id number] S [id number] MEDICAID M [id number] S [id number] UNAVAILABLE UNAVAILA BLE [facility] [id number] SP [id number] MEDICAID [id number] SP [id number] [facility] [id number] SP [id number] Problems, Conditions, and Diagnoses No Information Surgeries/Procedures No Information Results ID Date Data Source ADM RIBS UNILATERAL WITH PA CHEST 10/09/2020 12:00:00 AM EDT eCW1 ([facility]) Name Value Range Interpretation Code Description Data Holly rce(s) Supporting Document(s) ADM RIBS UNILATERAL WITH PA CH EST eCW1 ([facility]) Procedure Social History Code Duration Value Status Description Data Source(s ) Smoking 01/10/2021 12:00:00 AM EDT Former Smoker completed Former Smoker eCW1 ([facility]) Smoking 01/10/2021 12:00:00 AM EDT Former Smoker completed Former Smoker eCW1 ([facility]) Smoking 11/03/2020 12:00:00 AM EDT Former Smoker completed Former Smoker eCW1 ([facility]) Smoking 11/03/2020 12:00:00 AM EDT Former Smoker completed Former Smoker eCW1 ([facility]) Smoking 11/03/2020 12:00:00 AM EDT Former Smoker completed Former Smoker eCW1 ([facility]) Smoking 10/10/2020 12:00:00 AM EDT Former Smoker completed Former Smoker eCW1 ([facility]) Smoking 10/10/2020 12:00:00 AM EDT Former Smoker completed Former Smoker eCW1 ([facility]) Smoking 10/10/2020 12:00:00 AM EDT Former Smoker completed Former Smoker eCW1 ([facility]) Smoking 07/04/2020 12:00:00 AM EDT Former Smoker completed Former Smoker eCW1 ([facility]) Smoking 07/04/2020 12:00:00 AM EDT Former Smoker completed Former Smoker eCW1 ([facility]) Smoking 07/04/2020 12:00:00 AM EDT Former Smoker completed Former Smoker eCW1 ([facility]) Vital Signs ID Date Data Source UNK Name Value Range Interpretation Code Description Data Source(s) Body weight 173 [lb_av] 173 [lb_av] eCW1 ([facility]) Body height [in_i] eCW1 ([facility]) Body mass index (BMI) [Ratio] 27.09 kg/m2 27.09 kg/m2 eCW1 ([facility]) Heart rate 110 /min 110 /min eCW1 ([facility]) Respiratory rate 18 /min 18 /min eCW1 ([facility]) Body temperature 95.4 [degF] 95.4 [degF] eCW1 ( [facility]) Systolic blood pressure 130 mm[Hg] 130 mm[Hg] e CW1 ([facility]) Diastolic blood pressure 88 mm[Hg] 88 mm[Hg] eCW1 ([facility]) Body weight 180 [lb_av] 180 [lb_av] eCW1 ([facility]) Body height [in_i] eCW1 ([facility]) Body mass index (BMI) [Ratio] 28.19 kg/m2 28.19 kg/m2 W1 ([facility]) Heart rate 119 /min 119 /min eCW1 ([facility]) Respiratory rate 22 /min 22 /min eCW1 ([facility]) Body temperature 97.2 [degF] 97.2 [degF] eCW1 ( [facility]) Systolic blood pressure 158 mm[Hg] 158 mm[Hg] e CW1 ([facility]) Diastolic blood pressure 96 mm[Hg] 96 mm[Hg] eCW1 ([facility]) Body weight 172 [lb_av] 172 [lb_av] eCW1 ([facility]) Body height [in_i] eCW1 ([facility]) Body mass index (BMI) [Ratio] 26.94 kg/m2 26.94 kg/m2 eCW1 ([facility]) Heart rate 115 /min 115 /min eCW1 ([facility]) Respiratory rate 18 /min 18 /min eCW1 ([facility]) Body temperature 97.7 [degF] 97.7 [degF] eCW1 ( [facility]) Systolic blood pressure 164 mm[Hg] 164 mm[Hg] e CW1 ([facility]) Diastolic blood pressure 98 mm[Hg] 98 mm[Hg] eCW1 ([facility])
[2021-01-18] MEDS ORDERED: ATROPINE SULF 0.4 MG/ML 1ML VIAL (J0461) IV STA (05:31)
[2021-01-18] MEDS ORDERED: ATROPINE SULF 0.4 MG/ML 1ML VIAL (J0461) As Ordered ONE (05:32)
[2021-01-18] MEDS ORDERED: KETAMINE HCL 200 MG/20 ML VIAL IV ONE (05:35)
[2021-01-18] MEDS ORDERED: propofoL 1,000 MG in IV 1 EA IV SCH (05:35)
[2021-01-18 06:22] LABS: ABG BASE EXCESS -8.6 (-2.0-2.0); ABG HCO3 19.3 MEQ/L (22.0-26.0); ABG O2 SATURATION 99.1 % (95.0-99.0); ABG PARTIAL PRESSURE O2 242.6 mmHg (75.0-100.0); ABG STANDARD HCO3 17.7 MEQ/L (22.0-26.0); ABG TOTAL CO2 20.8 MEQ/L (22.0-29.0); ABG pH (ARTERIAL) 7.214 UNITS (7.350-7.450)
[2021-01-18 06:24] LABS: ALBUMIN 3.1 GM/DL (3.2-5.2); ALT/SGPT 41 U/L (12-78); BILIRUBIN,DIRECT 0.2 MG/DL (0.0-0.2); BILIRUBIN,TOTAL 0.5 MG/DL (0.2-1.0); BLOOD UREA NITROGEN 10 MG/DL (7-18); CALCIUM LEVEL 8.6 MG/DL (8.5-10.1); CARBON DIOXIDE LEVEL 22 MEQ/L (21-32); CHLORIDE LEVEL 104 MEQ/L (98-107); COMPLEMENT C4 19 MG/DL (10-40); CREATININE FOR GFR 0.56 MG/DL (0.70-1.30); GLOMERULAR FILTRATION RATE > 60.0 (>56); GLUCOSE, FASTING 80 MG/DL (70-100); POTASSIUM SERUM 3.9 MEQ/L (3.5-5.1); SODIUM LEVEL 136 MEQ/L (136-145); TOTAL PROTEIN 6.8 GM/DL (6.4-8.2)
--- OUTSIDE RECORDS SUMMARY | 2021-01-18 06:41 | CCD ---
Author Author [facility] Organization [facility] Address Unknown Phone Unavailable Support Name Relationship Address Phone KATERINA MYRICK Next Of Kin [address] [facility] [address] [place] [address] UNEMPLOYED Next Of Kin N/A [place] [address] UE Next Of Kin Unknown Unavailable COLETTE MYRICK Next Of Kin [address] [facility] [address] [place] [address] COLETTE MYRICK ECON [address] [facility] [address] [place], [place] [address] Unavailable Re-disclosure Warning The records that you [...] is protected by Article 27-F of the [facility] Public Health law. If you continue you may have access to information: Regarding HIV / AIDS; Provided by facilities licensed or operated by the [facility] Office of Mental Health; or Provided by the [facility] Office for People With Developmental Disabilities. If such information is present, then the following [facility] mandated warning applies: This information has [...] law may result in a fine or usp sentence or both. A general authorization for the release of medical or other information is NOT sufficient authorization for further disc losure. Encounters Encounter Providers Location Date Indications Data Source(s ) Unknown [address] [facility] [address] 01/12/2021 12:00:00 AM EDT eCW1 ([facility]) Unknown [address] [facility] [place] [address] 01/09/2021 12:00:00 AM EDT eCW1 ([facility]) Unknown [address] [facility] [place] [address] 12/16/2020 12:00:00 AM EDT eCW1 ([facility]) Unknown [address] [facility] [place] [address] 12/12/2020 12:00:00 AM EDT eCW1 ([facility]) Outpatient [address] [facility] [address] 11/03/2020 12:00:00 AM EDT eCW1 ([facility]) Outpatient [address] [facility] [address] 10/10/2020 12:00:00 AM EDT eCW1 ([facility]) Unknown [address] [facility] [address] 10/10/2020 12:00:00 AM EDT eCW1 ([facility]) [place] [address] [facility] [address] 10/08/2020 12:00:00 AM EDT eCW1 ([facility]) Unknown [address] [facility] [place] [address] 08/08/2020 12:00:00 AM EDT eCW1 ([facility]) [place] [address] [facility] [address] 08/04/2020 12:00:00 AM EDT eCW1 ([facility]) Out[place] [address] [facility] [address] 07/04/2020 12:00:00 AM EDT eCW1 ([facility]) Unknown [address] [facility] [address] 06/12/2020 12:00:00 AM EST eCW1 ([facility]) Unknown [address] [facility] [address] 01/03/2020 12:00:00 AM EDT eCW1 ([facility]) Immunizations Vaccine Date Status Description Data Source(s) COVID-19 VACCINE Moderna 08/06/2020 12:00:00 AM EDT completed [facility] Vaccine Series Complete: YESThis Data wa s Submitted to [facility] [employer]. COVID-19 VACC,MRNA(MODERNA)/PF 08/06/2020 12:00:00 AM EDT completed [facility] COVID-19 VACCINE Moderna 07/05/2020 12:00:00 AM EDT completed [facility] Vaccine Series Complete: NOThis Data was Submitted to [facility] [employer]. COVID-19 VACCINE, MRNA-1273, LNP-S (MODERNA)/PF 07/05/2020 1 [...] type / Coverage type Policy ID Covered alliance party ID Covered alliance party's relationship to sandoval Policy Sandoval Plan Information [facility] [id number] SP [id number] [facility] [id number] SP [id number] [facility] [id number] SP [id number] [facility] [id number] S [id number] [facility] [id number] [facility] [id number] [facility] [id number] [facility] [id number] [facility]-Medicaid [id number] ANSI-Medicaid [id number] ANSI-Medicaid [id number] ANSI-Medicaid [id number] [facility] Commercial [id number] Self [id number] ANSI-Medicaid [id number] ANSI-Medicaid [id number] ANSI-Medicaid [id number] ANSI-Medicaid [id number] ANSI-Medicaid [id number] ANSI-Medicaid [id number] ANSI-Medicaid [id number] ANSI-Medicaid [id number] ANSI-Medicaid [id number] ANSI-Medicaid [id number] ANSI-Medicaid [id number] ANSI-Medicaid [id number] ANSI-Medicaid [id number] ANSI-Medicaid [id number] ANSI-Medicaid [id number] ANSI-Medicaid [id number] ANSI-Medicaid [id number] ANSI-Medicaid [id number] ANSI-Medicaid [id number] ANSI-Medicaid [id number] ANSI-Medicaid [id number] ANSI-Medicaid [id number] ANSI-Medicaid [id number] ANSI-Medicaid [id number] ANSI-Medicaid [id number] ANSI-Medicaid [id number] ANSI-Medicaid [id number] ANSI-Medicaid [id number] ANSI-Medicaid [id number] ANSI-Medicaid [id number] ANSI-Medicaid [id number] ANSI-Medicaid [id number] ANSI-Medicaid [id number] ANSI-Medicaid [id number] ANSI-Medicaid [id number] ANSI-Medicaid [id number] ANSI-Medicaid [id number] [facility] [id number] [facility] [id number] [facility] [id number] MEDICAID M [id number] MEDICAID M [id number] UNAVAILABLE UNAVAILA BLE [facility] [id number] SP [id number] MEDICAID [id number] SP [id number] [facility] [id number] SP [id number] Problems, Conditions, and Diagnoses No Information Surgeries/Procedures No Information Results ID Date Data Source ADM RIBS UNILATERAL WITH PA CHEST 10/09/2020 12:00:00 AM EDT eCW1 ([facility]) Name Value Range Interpretation Code Description Data Holly rce(s) Supporting Document(s) ADM RIBS UNILATERAL WITH PA CH EST eCW1 ([facility]) Procedure Social History Code Duration Value Status Description Data Source(s ) Smoking 01/10/2021 12:00:00 AM EDT Former Smoker completed Former Smoker eCW1 ([facility]) Smoking 01/10/2021 12:00:00 AM EDT Former Smoker completed Former Smoker eCW1 ([facility]) Smoking 11/03/2020 12:00:00 AM EDT Former Smoker completed Former Smoker eCW1 ([facility]) Smoking 11/03/2020 12:00:00 AM EDT Former Smoker completed Former Smoker eCW1 ([facility]) Smoking 11/03/2020 12:00:00 AM EDT Former Smoker completed Former Smoker eCW1 ([facility]) Smoking 10/10/2020 12:00:00 AM EDT Former Smoker completed Former Smoker eCW1 ([facility]) Smoking 10/10/2020 12:00:00 AM EDT Former Smoker completed Former Smoker eCW1 ([facility]) Smoking 10/10/2020 12:00:00 AM EDT Former Smoker completed Former Smoker eCW1 ([facility]) Smoking 07/04/2020 12:00:00 AM EDT Former Smoker completed Former Smoker eCW1 ([facility]) Smoking 07/04/2020 12:00:00 AM EDT Former Smoker completed Former Smoker eCW1 ([facility]) Smoking 07/04/2020 12:00:00 AM EDT Former Smoker completed Former Smoker eCW1 ([facility]) Vital Signs ID Date Data Source UNK Name Value Range Interpretation Code Description Data Source(s) Body weight 173 [lb_av] 173 [lb_av] [facility] Body height [in_i] eCW1 ([facility]) Body mass index (BMI) [Ratio] 27.09 kg/m2 27.09 kg/m2 eCW1 ([facility]) Heart rate 110 /min 110 /min eCW1 ([facility]) Respiratory rate 18 /min 18 /min eCW1 ([facility]) Body temperature 95.4 [degF] 95.4 [degF] eCW1 ( [facility]) Systolic blood pressure 130 mm[Hg] 130 mm[Hg] e CW1 ([facility]) Diastolic blood pressure 88 mm[Hg] 88 mm[Hg] eCW1 ([facility]) Body weight 180 [lb_av] 180 [lb_av] eCW[facility] Body height [in_i] eCW1 ([facility]) Body mass index (BMI) [Ratio] 28.19 kg/m2 28.19 kg/m2 W1 ([facility]) Heart rate 119 /min 119 /min eCW1 ([facility]) Respiratory rate 22 /min 22 /min eCW1 ([facility]) Body temperature 97.2 [degF] 97.2 [degF] eCW1 ( [facility]) Systolic blood pressure 158 mm[Hg] 158 mm[Hg] e CW1 ([facility]) Diastolic blood pressure 96 mm[Hg] 96 mm[Hg] eCW1 ([facility]) Body weight 172 [lb_av] 172 [lb_av] eCW[facility] Body height [in_i] eCW1 ([facility]) Body mass index (BMI) [Ratio] 26.94 kg/m2 26.94 kg/m2 eCW1 ([facility]) Heart rate 115 /min 115 /min eCW1 ([facility]) Respiratory rate 18 /min 18 /min eCW1 ([facility] hospital) Body temperature 97.7 [degF] 97.7 [degF] eCW1 ( [facility]) Systolic blood pressure 164 mm[Hg] 164 mm[Hg] e CW1 ([facility]) Diastolic blood pressure 98 mm[Hg] 98 mm[Hg] eCW1 ([facility])
[2021-01-18] MEDS ORDERED: ROCURONIUM BROMIDE 50 MG/5 ML VIAL IV SCH (06:45)
[2021-01-18] MEDS ORDERED: ETOMIDATE INJ 20MG/10ML VIAL IV STA (06:45)
[2021-01-18] MEDS ORDERED: ATOR40TA75 PO (06:54)
[2021-01-18] MEDS ORDERED: CLOP75TA2 PO (06:54)
[2021-01-18] MEDS ORDERED: ECOT81TA5 PO (06:56)
[2021-01-18] MEDS ORDERED: med rec comment (06:58)
[2021-01-18] MEDS ORDERED: HOME MED LIST COMPLETE! XX SCH (07:00)
[2021-01-18] MEDS ORDERED: MIDAZOLAM 5MG/ML 1ML VIAL (J2250 PER 1MG) As Ordered ONE (07:10)
[2021-01-18] MEDS ORDERED: MIDAZOLAM HCL 100 MG in D5W 80 ML IV SCH (07:10)
[2021-01-18] MEDS ORDERED: MIDAZOLAM INJ 2MG/2ML VIAL (J2250 PER 1MG) IV ONE ×2 (07:10→20:10)
[2021-01-18] MEDS ORDERED: REFRIGERATOR IV KEYS XX PRN ×2 (07:10→10:00)
[2021-01-18 07:11] LABS: ERYTHROCYTE SEDIMENTATION RATE 13 mm/hr (0-20)
[2021-01-18 07:21] LABS: RSV AMPLIFICATION NEGATIVE (NEGATIVE)
[2021-01-18] MEDS: MIDAZOLAM HCL 100 MG in D5W 80 ML IV SCH ×2 (07:30→17:32)
[2021-01-18] MEDS: propofoL 1,000 MG in IV 1 EA IV SCH ×4 (07:35→23:11)
--- NOTE | 2021-01-18 07:36 | REPVR ---
PROCEDURE INFORMATION: Exam: XR Chest Exam date and time: 01/18/2021 6:19 AM Age: 60 years old Clinical indication: Other: Post intubation tube placement TECHNIQUE: Imaging protocol: XR of the chest. Views: 1 view. COMPARISON: CR Chest, 2 view PA, Lat 11/25/2020 4:55 PM FINDINGS: Tubes, catheters and devices: Endotracheal tube tip resides 6.3 cm above the nano Lungs: Unremarkable. No consolidation. Pleural spaces: Unremarkable. No pleural effusion. No pneumothorax. Heart/Mediastinum: Unremarkable. No cardiomegaly. Bones/joints: Chronic fracture deformity of lateral right 8th rib. IMPRESSION: 1. No acute cardiopulmonary process. Electronically signed by: Kimmy Diop On 01/18/2021 07:36:08 AM
--- OUTSIDE RECORDS SUMMARY | 2021-01-18 07:51 | CCD ---
Author Author [facility] Organization [facility] Address Unknown Phone Unavailable Support Name Relationship Address Phone KATERINA MYRICK Next Of Kin [phone] [facility] [address] [place] [phone] UNEMPLOYED Next Of Kin N/A [place] [id number] [employer] Next Of Kin Unknown Unavailable COLETTE MYRICK Next Of Kin [phone] [facility] [address] [place] [phone] COLETTE MYRICK ECON [address] [facility] [address] [place], [place] [address] Unavailable Re-disclosure Warning The records that you [...] is protected by Article 27-F of the [facility] Public Health law. If you continue you may have access to information: Regarding HIV / AIDS; Provided by facilities licensed or operated by the [facility] Office of Mental Health; or Provided by the [facility] Office for People With Developmental Disabilities. If such information is present, then the following [facility] mandated warning applies: This information has been [...] law may result in a fine or assisted sentence or both. A general authorization for the release of medical or other information is NOT sufficient authorization for further disc losure. Encounters Encounter Providers Location Date Indications Data Source(s ) Unknown [address] [facility] [address] 01/12/2021 12:00:00 AM EDT eCW1 ([facility]) [place] [address] [facility] [address] [place] [address] 01/09/2021 12:00:00 AM EDT eCW1 ([facility]) Unknown [address] [facility] [address] [place] [address] 12/16/2020 12:00:00 AM EDT eCW1 ([facility]) Unknown [address] [facility] [place] [address] 12/12/2020 12:00:00 AM EDT eCW1 ([facility]) Outpatient [address] [facility] [address] 11/03/2020 12:00:00 AM EDT eCW1 ([facility]) Outpatient [address] [facility] [address] 10/10/2020 12:00:00 AM EDT eCW1 ([facility]) Unknown [address] [facility] [address] 10/10/2020 12:00:00 AM EDT eCW1 ([facility]) Unknown [address] [facility] [address] 10/08/2020 12:00:00 AM EDT eCW1 ([facility]) Unknown [address] [facility] [address] [place] [address] 08/08/2020 12:00:00 AM EDT eCW1 ([facility]) Unknown [address] [facility] [address] 08/04/2020 12:00:00 AM EDT eCW1 ([facility]) Out[place] [address] [facility] [address] 07/04/2020 12:00:00 AM EDT eCW1 ([facility]) Unknown [address] [facility] [address] 06/12/2020 12:00:00 AM EST eCW1 ([facility]) Unknown [address] [facility] [address] 01/03/2020 12:00:00 AM EDT eCW1 ([facility]) Immunizations Vaccine Date Status Description Data Source(s) COVID-19 VACCINE Moderna 08/06/2020 12:00:00 AM EDT completed [facility] Vaccine Series Complete: YESThis Data wa s Submitted to [facility] Via [employer]. COVID-19 VACC,MRNA(MODERNA)/PF 08/06/2020 12:00:00 AM EDT completed [facility] COVID-19 VACCINE Moderna 07/05/2020 12:00:00 AM EDT completed [facility] Vaccine Series Complete: NOThis Data was Submitted to [facility] [employer]. COVID-19 VACCINE, MRNA-1273, LNP-S (MODERNA)/PF 07/05/2020 1 [...] relationship to sandoval Policy Sandoval Plan Information [facility] COMMUNITY PLAN [facility] [id number] SP [id number] [facility] [id number] SP [id number] [facility] [id number] SP [id number] [facility] [id number] S [id number] [facility]-Medicaid [id number] [facility]-Medicaid [id number] [facility]-Medicaid [id number] [facility]-Medicaid [id number] [facility]-Medicaid [id number] ANSI-Medicaid [id number] ANSI-Medicaid [id number] ANSI-Medicaid [id number] [facility] Commercial [id number] Self [id number] ANSI-Medicaid [id number] ANSI-Medicaid [id number] ANSI-Medicaid [id number] ANSI-Medicaid [id number] ANSI-Medicaid [id number] ANSI-Medicaid [id number] ANSI-Medicaid [id number] ANSI-Medicaid [id number] ANSI-Medicaid [id number] ANSI-Medicaid [id number] ANSI-Medicaid [id number] ANSI-Medicaid [id number] ANSI-Medicaid [id number] ANSI-Medicaid [id number] ANSI-Medicaid [id number] ANSI-Medicaid [id number] ANSI-Medicaid [id number] ANSI-Medicaid [id number] ANSI-Medicaid [id number] ANSI-Medicaid [id number] ANSI-Medicaid [id number] ANSI-Medicaid [id number] ANSI-Medicaid [id number] ANSI-Medicaid [id number] ANSI-Medicaid [id number] ANSI-Medicaid [id number] ANSI-Medicaid [id number] ANSI-Medicaid [id number] ANSI-Medicaid [id number] ANSI-Medicaid [id number] ANSI-Medicaid [id number] ANSI-Medicaid [id number] ANSI-Medicaid [id number] ANSI-Medicaid [id number] ANSI-Medicaid [id number] ANSI-Medicaid [id number] ANSI-Medicaid [id number] [facility]icaid [id number] [facility]-Medicaid [id number] [facility]-Medicaid [id number] MEDICAID M [id number] S [id number] MEDICAID M [id number] UNAVAILABLE UNAVAILA BLE [facility] [id number] SP [id number] MEDICAID [id number] SP [id number] [facility] [id number] SP [id number] Problems, Conditions, and Diagnoses No Information Surgeries/Procedures No Information Results ID Date Data Source ADM RIBS UNILATERAL WITH PA CHEST 10/09/2020 12:00:00 AM EDT eCW1 ([facility]) Name Value Range Interpretation Code Description Data Holly rce(s) Supporting Document(s) ADM RIBS UNILATERAL WITH PA CH EST eCW1 ([facility]) Procedure Social History Code Duration Value Status Description Data Source(s ) Smoking 01/10/2021 12:00:00 AM EDT Former Smoker completed Former Smoker eCW1 ([facility]) Smoking 01/10/2021 12:00:00 AM EDT Former Smoker completed Former Smoker eCW1 ([facility]) Smoking 11/03/2020 12:00:00 AM EDT Former Smoker completed Former Smoker eCW1 ([facility]) Smoking 11/03/2020 12:00:00 AM EDT Former Smoker completed Former Smoker eCW1 ([facility]) Smoking 11/03/2020 12:00:00 AM EDT Former Smoker completed Former Smoker eCW1 ([facility]) Smoking 10/10/2020 12:00:00 AM EDT Former Smoker completed Former Smoker eCW1 ([facility]) Smoking 10/10/2020 12:00:00 AM EDT Former Smoker completed Former Smoker eCW1 ([facility]) Smoking 10/10/2020 12:00:00 AM EDT Former Smoker completed Former Smoker eCW1 ([facility]) Smoking 07/04/2020 12:00:00 AM EDT Former Smoker completed Former Smoker eCW1 ([facility]) Smoking 07/04/2020 12:00:00 AM EDT Former Smoker completed Former Smoker eCW1 ([facility]) Smoking 07/04/2020 12:00:00 AM EDT Former Smoker completed Former Smoker eCW1 ([facility]) Vital Signs ID Date Data Source UNK Name Value Range Interpretation Code Description Data Source(s) Body weight 173 [lb_av] 173 [lb_av] [facility] ([facility] Body height [in_i] eCW1 ([facility]) Body mass index (BMI) [Ratio] 27.09 kg/m2 27.09 kg/m2 eCW1 ([facility]) Heart rate 110 /min 110 /min eCW1 ([facility]) Respiratory rate 18 /min 18 /min eCW1 ([facility]) Body temperature 95.4 [degF] 95.4 [degF] eCW1 ( [facility]) Systolic blood pressure 130 mm[Hg] 130 mm[Hg] e CW1 ([facility]) Diastolic blood pressure 88 mm[Hg] 88 mm[Hg] eCW1 ([facility]) Body weight 180 [lb_av] 180 [lb_av] eCW1 ([facility]) Body height [in_i] eCW1 ([facility]) Body mass index (BMI) [Ratio] 28.19 kg/m2 28.19 kg/m2 W1 ([facility]) Heart rate 119 /min 119 /min eCW1 ([facility]) Respiratory rate 22 /min 22 /min eCW1 ([facility]) Body temperature 97.2 [degF] 97.2 [degF] eCW1 ( [facility]) Systolic blood pressure 158 mm[Hg] 158 mm[Hg] e CW1 ([facility]) Diastolic blood pressure 96 mm[Hg] 96 mm[Hg] eCW1 ([facility]) Body weight 172 [lb_av] 172 [lb_av] eCW1 ([facility]) Body height [in_i] eCW1 ([facility]) Body mass index (BMI) [Ratio] 26.94 kg/m2 26.94 kg/m2 eCW1 ([facility]) Heart rate 115 /min 115 /min eCW1 ([facility]) Respiratory rate 18 /min 18 /min eCW1 ([facility]) Body temperature 97.7 [degF] 97.7 [degF] eCW1 ( [facility]) Systolic blood pressure 164 mm[Hg] 164 mm[Hg] e CW1 ([facility]) Diastolic blood pressure 98 mm[Hg] 98 mm[Hg] eCW1 ([facility])
--- NOTE | 2021-01-18 08:01 | HPEPDOC ---
[facility] Medical History & Physical Date of Admission Jan 18, 2021 Date of Service: Jan 18, 2021 Other Provider Nereyda Rogers Attending Physician: HOLLY LOPEZ MD History and Physical CHIEF COMPLAINT: Facial swelling HISTORY OF PRESENT ILLNESS: This is a 60-year-old gentleman with past medical history of CVA, hypertension, chronic neuropathy presented to hospital with facial swelling. Patient is currently intubated and no history can be obtained at this point. Essentially patient presented to the hospital with facial swelling. In the emergency department he was given antihistamines, epinephrine and corticosteroids without any improvement. His facial swelling progressed to the point where he could no longer open his eyes. He was drooling and unable to speak. Therefore he was emergently intubated in the emergency department. Intubation was difficult due to angioedema. Patient does take lisinopril for his hypertension. He was previously here back in November 2020 with similar presentation. At that time, CT scan of the neck showed no evidence of soft tissue swelling. Therefore, he was given antibiotic and was discharged from the emergency department. Past medical history: Hypertension, CVA, chronic neuropathy Allergies Coded Allergies: bee pollen (Verified Allergy, Intermediate, swelling, 01/11/19) Surgical History Tonsillectomy Family History Significant Family History: No pertinent family hx Social History * Smoker: former Smoker, cigarettes (1 pack a day, started age 47, and stopped 5 months ago. ) Alcohol: other (sixpack of beer a day in remission, last drink, stopped 11 months ago. Vodka fifth a day, stopped 7 years ago) Drugs: cocaine (past use snorted in the 80s stopped 15 years ago), prescription drugs Recent Travel/Sick Contacts: Denies: Recent travel, Recent sick contacts Psychosocial History: No pertinent psych hx (niacin) ALLERGIES: Please see below. REVIEW OF SYSTEMS: Cannot be obtained as patient is currently intubated and sedated. HOME MEDICATIONS: Please see below. PHYSICAL EXAMINATION: VITAL SIGNS: Vital signs were stable on admission. Please see below for vital signs. GENERAL APPEARANCE: Intubated and sedated. HEENT: Entire anterior neck as well as maxillary and periorbital areas severely edematous. There is no erythema or open skin. CARDIOVASCULAR: Normal S1-S2 with no evidence of murmur. LUNGS: Clear to auscultation bilaterally. ABDOMEN: Nondistended, soft nontender to palpation with active bowel sounds. MUSCULOSKELETAL: No evidence of joint swelling. EXTREMITIES: No evidence of pedal edema or clubbing of the fingers. NEUROLOGICAL: Pupils are reactive to light, nonfocal. PSYCHIATRIC: Unable to be assessed. Imaging: Chest x-ray showed no evidence of infiltrate, effusion with no tracheal deviation. LABORATORY DATA: See below. MICROBIOLOGY: Please see below. ASSESSMENT: This is a 60-year-old gentleman with past medical history of CVA, hypertension, chronic neuropathy presented to hospital with facial swelling. #DARA inhibitor induced angioedema -Currently intubated for airway protection. -We will give systemic corticosteroid, antihistamine and possible epinephrine for supportive care. -Tryptase, complement level and C1 esterase level has been sent. We will get hold off administering fresh frozen plasma. #Respiratory failure secondary to inability to protect airway -Currently intubated on mechanical ventilator. Will wait until angioedema improve prior to extubation. Will perform daily cuff leak test. #Hypertension -We will hold off giving antihypertensive medication. May consider switching him to Norvasc instead of DARA inhibitor. #History of stroke -Can continue aspirin and Lipitor. We will hold off Plavix in case if he will need any procedure (trach). DVT prophylaxis: Lovenox subcutaneous GI prophylaxis: Pepcid (for angioedema) Diet: N.p.o. CODE STATUS: Full code Critical care time excluding procedure is 60 minutes. Vital Signs Vital Signs Date Time Temp Pulse Resp B/P (MAP) Pulse Ox O2 Delivery O2 Flow Rate FiO2 01/18/21 07:30 112 16 83/52 (62) 100 Ventilator 01/18/21 06:45 98.2 01/18/21 06:07 60 Laboratory Data Labs 24H Laboratory Tests 2 01/18/21 05:43: Erythrocyte Sedimentation Rate 13, Anion Gap 10, Glomerular Filtration Rate > 60.0, Calcium Level 8.6, Total Bilirubin 0.5, Direct Bilirubin 0.2, Aspartate Amino Transf (AST/SGOT) 68H, Alanine Aminotransferase (ALT/SGPT) 41, Alkaline Phosphatase 103, C-Reactive Protein, Quantitative 0.60H, Total Protein 6.8, Albumin 3.1L, Albumin/Globulin Ratio 0.8, Complement C4 19 01/18/21 06:06: Blood Gas Bicarbonate Standard 17.7L, Arterial Blood pH 7.214*L, Arterial Blood Partial Pressure CO2 49.0H, Arterial Blood Partial Pressure O2 242.6H, Arterial Blood Total CO2 20.8L, Arterial Blood HCO3 19.3L, Arterial Blood Base Excess - 8.6L, Arterial Blood Oxygen Saturation 99.1H 01/18/21 06:20: Coronavirus (COVID-19)(PCR) NEGATIVE, Influenza Type A (RT-PCR) NEGATIVE, Influenza Type B (RT-PCR) NEGATIVE, Respiratory Syncytial Virus (PCR) NEGATIVE 01/18/21 06:21: CBC/BMP Laboratory Tests 01/18/21 05:43 Home Medications Scheduled Amitriptyline HCl (Amitriptyline HCl) 50 Mg Tablet, 50 MG PO QHS Aspirin (Ecotrin) 81 Mg Tablet.dr, 81 MG PO DAILY Atorvastatin Calcium (Atorvastatin Calcium) 40 Mg Tablet, 40 MG PO QHS Clopidogrel Bisulfate (Clopidogrel) 75 Mg Tablet, 75 MG PO DAILY Lisinopril (Lisinopril) 20 Mg Tablet, 20 MG PO DAILY Miscellaneous Medications [med rec comment] unable to verify with pt. used external Allergies Coded Allergies: bee pollen (Verified Allergy, Intermediate, swelling, 01/11/19) A-FIB/CHADSVASC A-FIB History Current/History of A-Fib/PAF?: No HOLLY LOPEZ MD Jan 18, 2021 08:01
[2021-01-18] MEDS: MIDAZOLAM INJ 2MG/2ML VIAL (J2250 PER 1MG) IV PRN ×6 (08:16→20:12)
[2021-01-18] MEDS: methylPREDNISolone 40MG 1ML VIAL IV SCH ×2 (10:33→21:23)
[2021-01-18] MEDS: diphenhydrAMINE 50MG/ML VIAL (J1200) IV SCH ×2 (10:35→21:22)
[2021-01-18] MEDS: ASPIRIN 81 MG CHEW TABLET NG SCH (10:36)
[2021-01-18] MEDS: CHLORHEXIDINE GLUCONATE 0.12 % 15ML UDC (PERIDEX ORAL RINSE) MT SCH ×2 (10:37→21:23)
[2021-01-18] MEDS: FAMOTIDINE IV BAG 20 MG in IV 1 EA IV SCH ×2 (10:37→21:23)
[2021-01-18 11:35] LABS: HEMATOCRIT 38.5 % (42.0-52.0); HEMOGLOBIN 13.4 g/dl (13.5-17.5); MEAN CORPUSCULAR HEMOGLOBIN 34.9 pg (27.0-33.0); MEAN CORPUSCULAR HGB CONC 34.8 g/dl (32.0-36.5); MEAN CORPUSCULAR VOLUME 100.3 fl (80.0-96.0); PLATELET COUNT, AUTOMATED 247 10^3/uL (150-450); RED BLOOD COUNT 3.84 10^6/uL (4.30-6.10); WHITE BLOOD COUNT 9.2 10^3/uL (4.0-10.0)
[2021-01-18] MEDS: ENOXAPARIN 40MG/0.4ML SYRINGE (J1650 PER 10MG) SC SCH (12:43)
[2021-01-18] MEDS ORDERED: fentaNYL 100 MCG/2 ML INJECTION (J3010) IV PRN (14:55)
[2021-01-18] MEDS: dexmedeTOMidine 200 MCG in IV 1 EA IV SCH ×3 (15:21→22:38)
[2021-01-18] MEDS ORDERED: NS 500 ML IV ONE (18:45)
[2021-01-18] MEDS: NS 1,000 ML IV SCH (19:05)
[2021-01-18] MEDS ORDERED: EPINEPHrine INJ 1 MG/ML 1ML AMP As Ordered ONE (19:28)
[2021-01-18] MEDS: EPINEPHrine HCL INJ 1 MG in D5W 240 ML IV SCH (19:58)
[2021-01-18] MEDS ORDERED: ETOMIDATE INJ 20MG/10ML VIAL As Ordered ONE (20:17)
[2021-01-18] MEDS ORDERED: ETOMIDATE INJ 20MG/10ML VIAL IV ONE (20:20)
--- NOTE | 2021-01-18 20:27 | ROOPDOC ---
[facility] Report Of Operation Report of Operation DATE OF PROCEDURE: 01/18/21 PROCEDURE PERFORMED: Emergent Right femoral central venous catheter insertion PREPROCEDURE DIAGNOSES: anaphylactic shock POSTPROCEDURE DIAGNOSES: anaphylactic shock SURGEON: Dr Sharan MD ANESTHESIA: Local lidocaine 1% ESTIMATED BLOOD LOSS: Approximately 1 mL. COMPLICATIONS: none DESCRIPTION OF PROCEDURE: A time out was performed. My hands were washed immediately prior to the procedure. I wore a surgical cap, mask with protective eyewear, sterile gown and sterile gloves throughout the procedure. The right inguinal region was prepped using chlorhexidine scrub and draped in sterile fashion using a full drape and sterile probe cover and sterile gel employed. The femoral pulse and femoral vein was identified under ultrasound. Anesthesia was achieved using 1% lidocaine. Palpating the femoral pulse throughout the procedure and visualizing the femoral vein under ultrasound, the introducer needle was inserted medial to the femoral artery, inferior to the inguinal crease and into the femoral vein. Venous blood was withdrawn. The syringe was removed and a guidewire was advanced into the introducer needle. A small incision was made at the skin surface with a scalpel and the introducer needle was exchanged for a dilator over the guidewire. After appropriate dilation was obtained, the dilator was exchanged over the wire for a triple lumen central venous catheter. The wire wa s removed and the catheter was sutured in place at 20 cm. A sterile sorbaview shield was placed over the catheter at the insertion site. The patient tolerated the procedure without any hemodynamic compromise. At time of procedure completion, all ports aspirated and flushed properly. Estimated blood loss is 1cc. HOLLY LOPEZ MD Jan 18, 2021 20:27
[2021-01-18] MEDS: ATORVASTATIN 20 MG TAB NG SCH (21:30)
[2021-01-19] VITALS (36 sets, daily range): BP systolic 80–126; BP diastolic 53–85
[2021-01-19] MEDS: dexmedeTOMidine 200 MCG in IV 1 EA IV SCH ×7 (00:45→16:28)
[2021-01-19] MEDS: propofoL 1,000 MG in IV 1 EA IV SCH ×5 (03:28→16:28)
[2021-01-19 04:58] LABS: HEMOGLOBIN 12.6 g/dl (13.5-17.5); MEAN CORPUSCULAR HEMOGLOBIN 35.7 pg (27.0-33.0); MEAN CORPUSCULAR HGB CONC 34.1 g/dl (32.0-36.5); MEAN CORPUSCULAR VOLUME 104.8 fl (80.0-96.0); PLATELET COUNT, AUTOMATED 212 10^3/uL (150-450); RED BLOOD COUNT 3.53 10^6/uL (4.30-6.10); WHITE BLOOD COUNT 12.2 10^3/uL (4.0-10.0)
[2021-01-19 05:17] LABS: BLOOD UREA NITROGEN 7 MG/DL (7-18); CALCIUM LEVEL 8.4 MG/DL (8.5-10.1); CARBON DIOXIDE LEVEL 29 MEQ/L (21-32); CHLORIDE LEVEL 104 MEQ/L (98-107); CREATININE FOR GFR 0.85 MG/DL (0.70-1.30); GLOMERULAR FILTRATION RATE > 60.0 (>56); GLUCOSE, FASTING 162 MG/DL (70-100); POTASSIUM SERUM 4.6 MEQ/L (3.5-5.1); SODIUM LEVEL 137 MEQ/L (136-145)
[2021-01-19] MEDS: NS 1,000 ML IV SCH ×2 (05:36→15:55)
[2021-01-19] MEDS: MIDAZOLAM HCL 100 MG in D5W 80 ML IV SCH ×2 (07:30→16:32)
[2021-01-19] MEDS: ENOXAPARIN 40MG/0.4ML SYRINGE (J1650 PER 10MG) SC SCH (07:50)
[2021-01-19] MEDS: diphenhydrAMINE 50MG/ML VIAL (J1200) IV SCH ×2 (07:50→20:13)
[2021-01-19] MEDS: ASPIRIN 81 MG CHEW TABLET NG SCH (07:50)
[2021-01-19] MEDS: methylPREDNISolone 40MG 1ML VIAL IV SCH ×2 (07:50→20:13)
[2021-01-19] MEDS: CHLORHEXIDINE GLUCONATE 0.12 % 15ML UDC (PERIDEX ORAL RINSE) MT SCH ×2 (07:50→20:13)
[2021-01-19] MEDS: FAMOTIDINE IV BAG 20 MG in IV 1 EA IV SCH ×2 (07:51→20:13)
[2021-01-19] MEDS: MIDAZOLAM INJ 2MG/2ML VIAL (J2250 PER 1MG) IV PRN (08:56)
[2021-01-19 08:57] LABS: AMPHETAMINES LEVEL URINE NEGATIVE (NEGATIVE); BARBITURATES URINE NEGATIVE (NEGATIVE); BENZODIAZEPINES URINE POSITIVE (NEGATIVE); CANNABINOIDS URINE POSITIVE (NEGATIVE); COCAINE METABOLITE URINE NEGATIVE (NEGATIVE); METHADONE URINE NEGATIVE (NEGATIVE); OPIATES URINE NEGATIVE (NEGATIVE); PHENCYCLIDINE URINE NEGATIVE (NEGATIVE)
--- NOTE | 2021-01-19 13:30 | IPNPDOC ---
Subjective Date Seen The patient was seen on 01/19/21. Subjective Chief Complaint/HPI Gets extremely agitated but does follow commands 1 coming off sedation. Therefore he will remain on sedation until angioedema is improving. General: Reports: ROS Unobtainable Objective Physical Examination General Exam: Positive: Other (sedated comfortably) Eye Exam: Positive: Other Eye Symptoms (Periorbital edema); Negative: Sclera icteric ENT Exam: Positive: Atraumatic Neck Exam: Positive: Other (Significant diffuse swelling of the neck) Chest Exam: Positive: Clear to auscultation, Normal air movement; Negative: Rales, Rhonchi, Wheezing Heart Exam: Positive: Rate Normal Abdomen Exam: Positive: Normal bowel sounds Male Exam: Negative: Edema Extremity Exam: Negative: Clubbing, Edema Psych Exam: Positive: Anxiety (Coming off sedation) Assessment /Plan Assessment This is a 60-year-old gentleman with past medical history of CVA, hypertension, chronic neuropathy presented to hospital with facial swelling. He was found to be angioedema and was emergently intubated for airway protection. Plan/VTE VTE Prophylaxis Ordered?: Yes Plan #DARA inhibitor induced angioedema -Currently intubated for airway protection. -Continue with systemic corticosteroid, antihistamine, and epinephrine for supportive care. -Tryptase, complement level and C1 esterase level has been sent. We will get hold off administering fresh frozen plasma as I do not suspect hereditary angioedema in his case. #Respiratory failure secondary to inability to protect airway -Currently intubated on mechanical ventilator. Will wait until angioedema improve prior to extubation. Cuff leak test was performed today and there was no evidence of cuff leak. We will wait until tomorrow and reassess for possible extubation. #Hypertension -We will hold off giving antihypertensive medication. May consider switching him to Norvasc instead of DARA inhibitor. #History of stroke -Can continue aspirin and Lipitor. We will hold off Plavix in case if he will need any procedure (trach). DVT prophylaxis: Lovenox subcutaneous GI prophylaxis: Pepcid (for angioedema) Diet: N.p.o., may consider starting on tube feeding if he does not get extubated by tomorrow. CODE STATUS: Full code Critical care time excluding procedure is 45 minutes. Disposition Continue ICU care. VS, I&O, 24H, Fishbone Vital Signs/I&O Vital Signs Date Time Temp Pulse Resp B/P (MAP) Pulse Ox O2 Delivery O2 Flow Rate FiO2 01/19/21 12:00 30 01/19/21 09:00 85 126/84 (100) 99 Ventilator 01/19/21 07:08 18 01/19/21 07:00 97.0 I&O- Last 24 Hours up to 6 AM 01/19/21 06:00 Intake Total 1076.8 ml Output Total 2730 ml Balance -1653.2 ml Laboratory Data 24H LABS Laboratory Tests 2 01/19/21 04:47: Nucleated Red Blood Cells % (auto) 0.0, Anion Gap 4L, Glomerular Filtration Rate > 60.0, Calcium Level 8.4L 01/19/21 08:15: Urine Opiates Screen NEGATIVE, Urine Methadone Screen NEGATIVE, Urine Barbitu rates Screen NEGATIVE, Urine Phencyclidine Screen NEGATIVE, Urine Amphetamines Screen NEGATIVE, Urine Benzodiazepines Screen POSITIVEH, Urine Cocaine Metabolite Screen NEGATIVE, Urine Cannabinoids Screen POSITIVEH CBC/BMP Laboratory Tests 01/19/21 04:47 HOLLY LOPEZ MD Jan 19, 2021 13:30
[2021-01-19] MEDS: ATORVASTATIN 20 MG TAB NG SCH (20:13)
[2021-01-20] VITALS (25 sets, daily range): BP systolic 86–139; BP diastolic 58–84
[2021-01-20] MEDS: NS 1,000 ML IV SCH (01:01)
[2021-01-20] MEDS: dexmedeTOMidine 200 MCG in IV 1 EA IV SCH ×6 (04:21→21:44)
[2021-01-20 04:32] LABS: HEMATOCRIT 37.5 % (42.0-52.0); HEMOGLOBIN 12.5 g/dl (13.5-17.5); MEAN CORPUSCULAR HEMOGLOBIN 35.3 pg (27.0-33.0); MEAN CORPUSCULAR HGB CONC 33.3 g/dl (32.0-36.5); MEAN CORPUSCULAR VOLUME 105.9 fl (80.0-96.0); PLATELET COUNT, AUTOMATED 220 10^3/uL (150-450); RED BLOOD COUNT 3.54 10^6/uL (4.30-6.10); WHITE BLOOD COUNT 10.6 10^3/uL (4.0-10.0)
[2021-01-20 05:00] LABS: BLOOD UREA NITROGEN 8 MG/DL (7-18); CALCIUM LEVEL 8.3 MG/DL (8.5-10.1); CARBON DIOXIDE LEVEL 27 MEQ/L (21-32); CHLORIDE LEVEL 108 MEQ/L (98-107); CREATININE FOR GFR 0.78 MG/DL (0.70-1.30); GLOMERULAR FILTRATION RATE > 60.0 (>56); GLUCOSE, FASTING 135 MG/DL (70-100); POTASSIUM SERUM 4.6 MEQ/L (3.5-5.1); SODIUM LEVEL 139 MEQ/L (136-145)
[2021-01-20] MEDS: MIDAZOLAM HCL 100 MG in D5W 80 ML IV SCH ×2 (07:00→21:44)
[2021-01-20] MEDS: methylPREDNISolone 40MG 1ML VIAL IV SCH ×2 (09:28→20:10)
[2021-01-20] MEDS: FAMOTIDINE IV BAG 20 MG in IV 1 EA IV SCH ×2 (09:28→20:10)
[2021-01-20] MEDS: CHLORHEXIDINE GLUCONATE 0.12 % 15ML UDC (PERIDEX ORAL RINSE) MT SCH ×2 (09:28→20:11)
[2021-01-20] MEDS: ASPIRIN 81 MG CHEW TABLET NG SCH (09:29)
[2021-01-20] MEDS: ENOXAPARIN 40MG/0.4ML SYRINGE (J1650 PER 10MG) SC SCH (09:29)
[2021-01-20] MEDS: diphenhydrAMINE 50MG/ML VIAL (J1200) IV SCH ×2 (09:29→20:11)
[2021-01-20] MEDS: propofoL 1,000 MG in IV 1 EA IV SCH ×2 (10:21→15:31)
--- NOTE | 2021-01-20 14:23 | IPNPDOC ---
Subjective Date Seen The patient was seen on 01/20/21. Subjective Chief Complaint/HPI Remains intubated and sedated. General: Reports: ROS Unobtainable Objective Physical Examination General Exam: Positive: Other (sedated comfortably) Eye Exam: Negative: Sclera icteric, Other Eye Symptoms ENT Exam: Positive: Atraumatic Neck Exam: Positive: Other (Significant diffuse swelling of the neck) Chest Exam: Positive: Clear to auscultation, Normal air movement; Negative: Rales, Rhonchi, Wheezing Heart Exam: Positive: Rate Normal Abdomen Exam: Positive: Normal bowel sounds Male Exam: Negative: Edema Extremity Exam: Negative: Clubbing, Edema Assessment /Plan Assessment This is a 60-year-old gentleman with past medical history of CVA, hypertension, chronic neuropathy presented to hospital with facial swelling. He was found to be angioedema and was emergently intubated for airway protection. Plan/VTE VTE Prophylaxis Ordered?: Yes Plan #DARA inhibitor induced angioedema -Currently intubated for airway protection. -Continue with systemic corticosteroid, antihistamine, and epinephrine for supportive care. -Tryptase, complement level and C1 esterase level has been sent. We will get h old off administering fresh frozen plasma as I do not suspect hereditary angioedema in his case. #Respiratory failure secondary to inability to protect airway -Currently intubated on mechanical ventilator. Will wait until angioedema improve prior to extubation. There is evidence of cuff leak today. We will give another 24 hours for the neck edema to improve before considering extubation. #Hypertension -We will hold off giving antihypertensive medication. May consider switching him to Norvasc instead of DARA inhibitor. #History of stroke -Can continue aspirin and Lipitor. We will hold off Plavix in case if he will need any procedure (trach). DVT prophylaxis: Lovenox subcutaneous GI prophylaxis: Pepcid (for angioedema) Diet: Start tube feeding today. CODE STATUS: Full code Critical care time excluding procedure is 30 minutes. Disposition Continue ICU care. VS, I&O, 24H, Fishbone Vital Signs/I&O Vital Signs Date Time Temp Pulse Resp B/P (MAP) Pulse Ox O2 Delivery O2 Flow Rate FiO2 01/20/21 12:00 Ventilator 01/20/21 11:00 53 13 101/67 (78) 95 21 01/20/21 08:00 98.6 l I&O- Last 24 Hours up to 6 AM 01/20/21 06:00 Intake Total 3409 ml Output Total 1675 ml Balance 1734 ml Laboratory Data 24H LABS Laboratory Tests 2 01/20/21 03:55: Nucleated Red Blood Cells % (auto) 0.0, Anion Gap 4L, Glomerular Filtration Rate > 60.0, Calcium Level 8.3L 01/20/21 12:10: Bedside Glucose (Misc Panel) 121H CBC/BMP Laboratory Tests 01/20/21 03:55 HOLLY LOPEZ MD Jan 20, 2021 14:22
[2021-01-20] MEDS: EPINEPHrine HCL INJ 1 MG in D5W 240 ML IV SCH (19:02)
[2021-01-20] MEDS: ATORVASTATIN 20 MG TAB NG SCH (20:10)
[2021-01-21] VITALS (14 sets, daily range): BP systolic 119–169; BP diastolic 78–96
[2021-01-21 03:56] LABS: HEMATOCRIT 37.9 % (42.0-52.0); HEMOGLOBIN 12.6 g/dl (13.5-17.5); MEAN CORPUSCULAR HEMOGLOBIN 35.3 pg (27.0-33.0); MEAN CORPUSCULAR HGB CONC 33.2 g/dl (32.0-36.5); MEAN CORPUSCULAR VOLUME 106.2 fl (80.0-96.0); PLATELET COUNT, AUTOMATED 200 10^3/uL (150-450); RED BLOOD COUNT 3.57 10^6/uL (4.30-6.10); WHITE BLOOD COUNT 8.2 10^3/uL (4.0-10.0)
[2021-01-21 04:18] LABS: BLOOD UREA NITROGEN 8 MG/DL (7-18); CARBON DIOXIDE LEVEL 29 MEQ/L (21-32); CHLORIDE LEVEL 106 MEQ/L (98-107); CREATININE FOR GFR 0.77 MG/DL (0.70-1.30); GLOMERULAR FILTRATION RATE > 60.0 (>56); GLUCOSE, FASTING 145 MG/DL (70-100); POTASSIUM SERUM 4.5 MEQ/L (3.5-5.1); SODIUM LEVEL 140 MEQ/L (136-145)
[2021-01-21] MEDS: propofoL 1,000 MG in IV 1 EA IV SCH (06:34)
[2021-01-21] MEDS: dexmedeTOMidine 200 MCG in IV 1 EA IV SCH (06:34)
[2021-01-21] MEDS: methylPREDNISolone 40MG 1ML VIAL IV SCH ×2 (08:48→19:51)
[2021-01-21] MEDS: ENOXAPARIN 40MG/0.4ML SYRINGE (J1650 PER 10MG) SC SCH (08:48)
[2021-01-21] MEDS: CHLORHEXIDINE GLUCONATE 0.12 % 15ML UDC (PERIDEX ORAL RINSE) MT SCH (08:49)
[2021-01-21] MEDS: FAMOTIDINE IV BAG 20 MG in IV 1 EA IV SCH (08:50)
[2021-01-21] MEDS: ASPIRIN 81 MG CHEW TABLET NG SCH (08:57)
--- NOTE | 2021-01-21 09:49 | IPNPDOC ---
Subjective Date Seen The patient was seen on 01/21/21. Subjective Chief Complaint/HPI Patient is agitated coming off sedations but following simple commands. General: Reports: ROS Unobtainable Objective Physical Examination General Exam: Positive: Other (sedated comfortably) Eye Exam: Negative: Sclera icteric, Other Eye Symptoms ENT Exam: Positive: Atraumatic Neck Exam: Positive: Other (Significant diffuse swelling of the neck) Chest Exam: Positive: Clear to auscultation, Normal air movement; Negative: Rales, Rhonchi, Wheezing Heart Exam: Positive: Rate Normal Abdomen Exam: Positive: Normal bowel sounds Male Exam: Negative: Edema Extremity Exam: Negative: Clubbing, Edema Assessment /Plan Assessment This is a 60-year-old gentleman with past medical history of CVA, hypertension, chronic neuropathy presented to hospital with facial swelling. He was found to be angioedema and was emergently intubated for airway protection. Plan/VTE VTE Prophylaxis Ordered?: Yes Plan #DARA inhibitor induced angioedema -gas exchange was optimal on room air while on ventilator. There was cuff leak. Therefore, he was extubated today. No evidence of stridor after extubation. -Would continue with corticosteroid, antihistamine for supportive care. -Tryptase, complement level and C1 esterase level has been sent to check for hereditary angioedema. #Respiratory failure secondary to inability to protect airway -gas exchange was optimal on room air while on ventilator. There was cuff leak. Therefore, he was extubated today. No evidence of stridor after extubation. #Hypertension -We will hold off giving antihypertensive medication. May consider switching him to another antihypertensive medication. He can NEVER be on any ACEi. #History of stroke -Can continue aspirin and Lipitor. Plavix restarted as I don't anticipate any procedures will need to be done. DVT prophylaxis: Lovenox subcutaneous GI prophylaxis: Pepcid (for angioedema) Diet: advance diet as tolerated. CODE STATUS: Full code Critical care time excluding procedure is 30 minutes. Disposition transfer out of ICU VS, I&O, 24H, Fishbone Vital Signs/I&O Vital Signs Date Time Temp Pulse Resp B/P (MAP) Pulse Ox O2 Delivery O2 Flow Rate FiO2 01/21/21 06:00 51 12 119/79 (92) 96 Ventilator 21 01/21/21 04:00 98.3 I&O- Last 24 Hours up to 6 AM 10/20/21 06:00 Intake Total 2395.9 ml Output Total 1615 ml Balance 780.9 ml Laboratory Data 24H LABS Laboratory Tests 2 01/20/21 12:10: Bedside Glucose (Misc Panel) 121H 01/21/21 03:50: Nucleated Red Blood Cells % (auto) 0.0, Anion Gap 5L, Glomerular Filtration Rate > 60.0, Calcium Level 8.0L CBC/BMP Laboratory Tests 01/21/21 03:50 HOLLY LOPEZ MD Jan 21, 2021 09:49
[2021-01-21] MEDS: CLOPIDOGREL 75 MG TAB PO SCH (10:18)
[2021-01-21] MEDS: ASPIRIN 81 MG CHEW TABLET PO SCH (10:18)
[2021-01-21] MEDS: diphenhydrAMINE 25MG CAP PO SCH (10:18)
[2021-01-21] MEDS: FAMOTIDINE 20 MG TAB PO SCH (10:18)
[2021-01-21] MEDS ORDERED: PRED10TA2 PO (11:14)
[2021-01-21] MEDS ORDERED: BENA25CA4 PO (11:14)
[2021-01-21] MEDS ORDERED: FAMO20TA PO (11:14)
[2021-01-21] MEDS ORDERED: AMLO10TA PO (11:16)
--- NOTE | 2021-01-21 15:04 | IPNPDOC ---
Text Note Date of Service The patient was seen on 01/21/21. NOTE Subjective: Patient was successfully extubated in the morning. When I saw him he was on the 4 L of oxygen with saturation of 92%.] Objective: GENERAL APPEARANCE: NAD HEENT: no scleral icterus, no JVD, EOMI, some face puffiness CARDIOVASCULAR: S1S2 LUNGS: Diminished lung sounds bilaterally ABDOMEN: soft & not tender w palpation MUSCULOSKELETAL: no cyanosis, no swelling INTEGUMENT: no generalized pallor NEUROLOGICAL: cranial nerve function from 2-12 intact, follows commands, speech not dysarthric Assessment and plan Patient is a 60 years old male with past medical history of CVA, hypertension, chronic neuropathy presented to hospital with facial swelling. Patient was found to have angioedema secondary to lisinopril DARA inhibitor induced angioedema Patient successfully extubated Continue steroid, antihistamines Tryptase, complement level and C1 esterase level pending Acute hypoxemic respiratory failure Secondary to angioedema Improved. Patient currently on 4 L of oxygen Hypertension Permanently stop DARA inhibitor's Norvasc 10 mg daily History of stroke Continue aspirin, Plavix and Lipitor Follow-up with neurologist in the outpatient settings VS,Lata, I+O VSLata I+O Laboratory Tests 01/21/21 03:50 Vital Signs Date Time Temp Pulse Resp B/P (MAP) Pulse Ox O2 Delivery O2 Flow Rate FiO2 01/21/21 12:00 98.3 109 30 139/87 (104) 94 Nasal Cannula 4.0 01/21/21 08:00 21 I&O- Last 24 Hours up to 6 AM 01/21/21 06:00 Intake Total 2395.9 ml Output Total 1615 ml Balance 780.9 ml JOI COELHO DO Jan 21, 2021 15:04
[2021-01-21] MEDS: THIAMINE 100 MG TAB PO SCH (16:15)
[2021-01-21] MEDS: LORazepam 2 MG TAB PO PRN ×2 (16:16→19:51)
[2021-01-21] MEDS ORDERED: ATORVASTATIN 20 MG TAB PO SCH (21:00)
[2021-01-22] VITALS: BP 148/98
[2021-01-22 04:00] VITALS: BP 146/98
[2021-01-22 06:00] VITALS: BP 154/89
[2021-01-22 07:22] LABS: HEMATOCRIT 38.6 % (42.0-52.0); HEMOGLOBIN 12.9 g/dl (13.5-17.5); MEAN CORPUSCULAR HEMOGLOBIN 34.8 pg (27.0-33.0); MEAN CORPUSCULAR HGB CONC 33.4 g/dl (32.0-36.5); PLATELET COUNT, AUTOMATED 253 10^3/uL (150-450); RED BLOOD COUNT 3.71 10^6/uL (4.30-6.10); WHITE BLOOD COUNT 12.1 10^3/uL (4.0-10.0)
[2021-01-22 07:48] LABS: BLOOD UREA NITROGEN 6 MG/DL (7-18); CALCIUM LEVEL 8.5 MG/DL (8.5-10.1); CARBON DIOXIDE LEVEL 32 MEQ/L (21-32); CHLORIDE LEVEL 100 MEQ/L (98-107); CREATININE FOR GFR 0.65 MG/DL (0.70-1.30); GLOMERULAR FILTRATION RATE > 60.0 (>56); GLUCOSE, FASTING 94 MG/DL (70-100); POTASSIUM SERUM 3.4 MEQ/L (3.5-5.1); SODIUM LEVEL 139 MEQ/L (136-145)
[2021-01-22 08:00] VITALS: BP 141/87
[2021-01-22] MEDS: ASPIRIN 81 MG CHEW TABLET PO SCH (08:04)
[2021-01-22] MEDS: FAMOTIDINE 20 MG TAB PO SCH (08:04)
[2021-01-22] MEDS: CLOPIDOGREL 75 MG TAB PO SCH (08:05)
[2021-01-22] MEDS: THIAMINE 100 MG TAB PO SCH (08:05)
[2021-01-22] MEDS: ENOXAPARIN 40MG/0.4ML SYRINGE (J1650 PER 10MG) SC SCH (08:05)
[2021-01-22] MEDS: diphenhydrAMINE 25MG CAP PO SCH (08:05)
[2021-01-22] MEDS ORDERED: MULTIVITAMINS/MINERALS THERAP 1 TAB PO SCH (09:00)
[2021-01-22] MEDS ORDERED: FOLIC ACID 1 MG TAB PO SCH (09:00)
[2021-01-22] MEDS ORDERED: TOPR25TA PO (11:05)
[2021-01-22] MEDS ORDERED: MAGNESIUM OXIDE 400MG TAB (MAG-OX) PO ONE (11:15)
[2021-01-22] MEDS ORDERED: POTASSIUM CHLORIDE 10MEQ SR TABLET PO ONE (11:15)
[2021-01-22] MEDS ORDERED: predniSONE 20 MG TAB PO ONE (13:00)
--- NOTE | 2021-01-22 17:29 | DS.PDOC ---
Discharge Summary General Date of Admission Jan 18, 2021 at 07:33 Date of Discharge 01/22/21 Discharge Summary PROCEDURES PERFORMED DURING STAY: [None]. ADMITTING DIAGNOSES: Acute hypoxemic respiratory failure MANPREET inhibitor induced angioedema Hypertension History of stroke DISCHARGE DIAGNOSES: Acute hypoxemic respiratory failure MANPREET inhibitor induced angioedema Hypertension History of stroke Coronary artery disease COMPLICATIONS/CHIEF COMPLAINT: Manpreet Inhibitor-Aggravated Angioedema. HISTORY OF PRESENT ILLNESS: This is a 60-year-old gentleman with past medical history of CVA, hypertension, chronic neuropathy presented to hospital with fa cial swelling. Patient is currently intubated and no history can be obtained at this point. Essentially patient presented to the hospital with facial swelling. In the emergency department he was given antihistamines, epinephrine and corticosteroids without any improvement. His facial swelling progressed to the point where he could no longer open his eyes. He was drooling and unable to speak. Therefore he was emergently intubated in the emergency department. Intubation was difficult due to angioedema. Patient does take lisinopril for his hypertension. He was previously here back in November 2020 with similar presentation. At that time, CT scan of the neck showed no evidence of soft tissue swelling. Therefore, he was given antibiotic and was discharged from the emergency department. HOSPITAL COURSE: During the hospital stay the following issue addressed MANPREET inhibitor induced angioedema Patient patient was intubated due to acute respiratory failure and successfully extubated on the next day Patient received steroid, antihistamines Tryptase, complement level and C1 esterase level pending Acute hypoxemic respiratory failure Secondary to angioedema Resolved Hypertension Permanently stop MANPREET inhibitor's Norvasc 10 mg daily History of stroke Continue aspirin, Plavix and Lipitor. Follow-up with neurologist in the outpatient settings Coronary artery disease Metoprolol added to his medical regimen DISCHARGE MEDICATIONS: Please see below. ALLERGIES: Please see below. PHYSICAL EXAMINATION ON DISCHARGE: VITAL SIGNS: Please see below. GENERAL APPEARANCE: NAD HEENT: no scleral icterus, no JVD, EOMI CARDIOVASCULAR: S1S2 LUNGS: Diminished lung sounds bilaterally ABDOMEN: soft & not tender w palpation MUSCULOSKELETAL: no cyanosis, no swelling INTEGUMENT: no generalized pallor NEUROLOGICAL: cranial nerve function from 2-12 intact, follows commands, speech not dysarthric LABORATORY DATA: Please see below. PROGNOSIS: Fair ACTIVITY: [As tolerated]. DIET: Cardiac DISPOSITION: 01 Home, Self-Care. DISCHARGE INSTRUCTIONS: Do not take lisinopril or any MANPREET/ARB medications ITEMS TO FOLLOWUP ON ON OUTPATIENT: Follow-up with PCP DISCHARGE CONDITION: [Stable]. TIME SPENT ON DISCHARGE: 40minutes. Vital Signs/I&Os Vital Signs Date Time Temp Pulse Resp B/P (MAP) Pulse Ox O2 Delivery O2 Flow Rate FiO2 01/22/21 10:00 95 Room Air 01/22/21 08:00 100 141/87 01/22/21 06:00 98.6 18 01/21/21 22:00 4.0 01/21/21 08:00 21 I&O- Last 24 Hours up to 6 AM 01/22/21 06:00 Intake Total 2064 ml Output Total 3205 ml Balance -1141 ml Laboratory Data Labs 24H Laboratory Tests 2 01/22/21 06:37: Nucleated Red Blood Cells % (auto) 0.0, Anion Gap 7L, Glomerular Filtration Rate > 60.0, Calcium Level 8.5 CBC/BMP Laboratory Tests 01/22/21 06:37 Discharge Medications Scheduled Amitriptyline HCl (Amitriptyline HCl) 50 Mg Tablet, 50 MG PO QHS, (Reported) Amlodipine Besylate (Norvasc) 10 Mg Tablet, 1 TAB PO DAILY Aspirin (Ecotrin) 81 Mg Tablet.dr, 81 MG PO DAILY, (Reported) Atorvastatin Calcium (Atorvastatin Calcium) 40 Mg Tablet, 40 MG PO QHS, (Reported) Clopidogrel Bisulfate (Clopidogrel) 75 Mg Tablet, 75 MG PO DAILY, (Reported) Diphenhydramine HCl (Benadryl) 25 Mg Capsule, 25 MG PO BID Famotidine (Famotidine) 20 Mg Tablet, 20 MG PO DAILY Metoprolol Succinate (Toprol Xl) 25 Mg Tab.er.24h, 1 TAB PO DAILY Prednisone (Prednisone) 10 Mg Tablet, 10 MG PO TAPER Take 4 tabs daily x 1 day, then 3 tabs daily x 1 day, then 2 tabs daily x 1 day, then 1 tab daily x 1 day and stop Miscellaneous Medications [med rec comment] , (Reported) unable to verify with pt. used external Allergies Coded Allergies: lisinopril (Verified Allergy, Severe, ANGIOEDEMA, 01/20/21) ANGIOEDEMA REQUIRING INTUBATION bee pollen (Verified Allergy, Intermediate, swelling, 01/11/19) JOI COELHO DO Jan 22, 2021 17:29
[2021-01-26 17:07] LABS: C1 ESTER INHIB. NON FUNCTIONAL 36 mg/dL (21-39); C1 ESTERASE INHIB. FUNCTIONAL > 91 (.); COAGULATION FACTOR XII ACTIVIT 108 % (50-150)
== END 2021-01-22 15:00 | disposition home or self-care (01) | DRG 811 ==
LOC: M ED 05:16 → M ED INP 07:33 → ENRESERV 07:55 → M PCU 08:54 → M MSPAV 01-21 11:05
PROVIDERS: ADMIT Internal Medicine Critical Care Medicine; ATTEND Internal Medicine
PROC: 5A1945Z Respiratory Ventilation, 24-96 Consecutive Hours (ICD-10-PCS; principal; 2021-01-18)
PROC: 06HM33Z Insertion of Infusion Device into Right Femoral Vein, Percutaneous Approach (ICD-10-PCS; 2021-01-18)
DX: T78.3XXA Angioneurotic edema, initial encounter (principal); J96.01 Acute respiratory failure with hypoxia; G62.9 Polyneuropathy, unspecified; T46.4X5A Adverse effect of angiotensin-converting-enzyme inhibitors, initial encounter; I10 Essential (primary) hypertension; Z86.73 Personal history of transient ischemic attack (TIA), and cerebral infarction without residual deficits; I25.10 Atherosclerotic heart disease of native coronary artery without angina pectoris; Z20.822 Contact with and (suspected) exposure to COVID-19; Z87.891 Personal history of nicotine dependence; Z91.030 Bee allergy status; Z79.82 Long term (current) use of aspirin; Z79.899 Other long term (current) drug therapy

== ENCOUNTER → 2021-02-17 | Outpatient (REF) | payer OTHER ==
[~2021-02-17] MED LIST changes: +AMLO10TA PO; +ATOR40TA75 PO; +BENA25CA4 PO; +ECOT81TA5 PO; +FAMO20TA PO; +PRED10TA2 PO; +TOPR25TA PO; +med rec comment
[2021-02-17 16:44] LABS: BASO # 0.1 10^3/uL (0.0-0.2); BASO % 0.5 % (0.0-1.0); EOS # 0.1 10^3/uL (0.0-0.5); EOS % 1.4 % (0.0-3.0); HEMATOCRIT 42.5 % (42.0-52.0); HEMOGLOBIN 14.3 g/dl (13.5-17.5); LYMPH # 1.6 10^3/uL (1.5-5.0); LYMPH % 17.6 % (24.0-44.0); MEAN CORPUSCULAR HEMOGLOBIN 33.5 pg (27.0-33.0); MEAN CORPUSCULAR HGB CONC 33.6 g/dl (32.0-36.5); MEAN CORPUSCULAR VOLUME 99.5 fl (80.0-96.0); MONO # 0.9 10^3/uL (0.0-0.8); MONO % 9.4 % (2.0-8.0); NEUTROPHILS # 6.5 10^3/uL (1.5-8.5); NEUTROPHILS % 70.6 % (36.0-66.0); PLATELET COUNT, AUTOMATED 219 10^3/uL (150-450); RED BLOOD COUNT 4.27 10^6/uL (4.30-6.10); WHITE BLOOD COUNT 9.3 10^3/uL (4.0-10.0)
[2021-02-17 17:09] LABS: ALT/SGPT 27 U/L (12-78); BILIRUBIN,TOTAL 0.5 MG/DL (0.2-1.0); BLOOD UREA NITROGEN 10 MG/DL (7-18); CALCIUM LEVEL 9.5 MG/DL (8.5-10.1); CARBON DIOXIDE LEVEL 32 MEQ/L (21-32); CHLORIDE LEVEL 99 MEQ/L (98-107); CREATININE FOR GFR 0.78 MG/DL (0.70-1.30); GLOMERULAR FILTRATION RATE > 60.0 (>56); GLUCOSE, FASTING 153 MG/DL (70-100); POTASSIUM SERUM 3.7 MEQ/L (3.5-5.1); SODIUM LEVEL 136 MEQ/L (136-145); TOTAL PROTEIN 8.1 GM/DL (6.4-8.2)
[2021-02-17 18:28] LABS: ERYTHROCYTE SEDIMENTATION RATE 22 mm/hr (0-20)
== END ==
LOC: M SFHCADAM 15:07
PROVIDERS: ATTEND Physician Assistant
DX: M79.89 Other specified soft tissue disorders (principal); M25.562 Pain in left knee

== ENCOUNTER → 2023-06-29 | Outpatient (REF) | payer OTHER ==
[2023-06-29 13:47] LABS: BASO # 0.2 10^3/uL (0.0-0.2); BASO % 1.7 % (0.0-1.0); EOS # 0.4 10^3/uL (0.0-0.5); EOS % 4.4 % (0.0-3.0); HEMATOCRIT 45.7 % (42.0-52.0); HEMOGLOBIN 15.6 g/dl (13.5-17.5); LYMPH % 32.9 % (24.0-44.0); MEAN CORPUSCULAR HEMOGLOBIN 31.6 pg (27.0-33.0); MEAN CORPUSCULAR HGB CONC 34.1 g/dl (32.0-36.5); MEAN CORPUSCULAR VOLUME 92.5 fl (80.0-96.0); MONO # 0.9 10^3/uL (0.0-0.8); MONO % 9.4 % (2.0-8.0); NEUTROPHILS # 4.7 10^3/uL (1.5-8.5); NEUTROPHILS % 51.2 % (36.0-66.0); PLATELET COUNT, AUTOMATED 320 10^3/uL (150-450); RED BLOOD COUNT 4.94 10^6/uL (4.30-6.10); WHITE BLOOD COUNT 9.1 10^3/uL (4.0-10.0)
[2023-06-29 14:25] LABS: THYROID STIMULATING HORMONE 3.271 uIU/ML (0.55-4.78); TOTAL 25(OH) VITAMIN D 33.9 NG/ML (20.0-100.0)
[2023-06-29 14:26] LABS: ALBUMIN 3.8 G/DL (3.2-5.2); ALKALINE PHOSPHATASE 118 U/L (46-116); ALT/SGPT 47 U/L (7.0-40); AST/SGOT 43 U/L (<34); BILIRUBIN,TOTAL 0.5 MG/DL (0.3-1.2); BLOOD UREA NITROGEN 12 MG/DL (9-23); CALCIUM LEVEL 9.2 MG/DL (8.3-10.6); CARBON DIOXIDE LEVEL 30 MMOL/L (20-31); CHLORIDE LEVEL 103 MMOL/L (98-107); CHOLESTEROL LEVEL 145 MG/DL (<200); CHOLESTEROL RISK RATIO 2.38 (<5); CREATININE FOR GFR 0.84 MG/DL (0.70-1.30); GLOMERULAR FILTRATION RATE > 60.0 (>49); GLUCOSE, FASTING 98 MG/DL (74-106); HDL CHOLESTEROL 60.7 MG/DL (>40); LDL CHOLESTEROL 65.9 MG/DL (<100); NON-HDL-C 84.3 MG/DL; POTASSIUM SERUM 4.6 MMOL/L (3.5-5.1); SODIUM LEVEL 139 MMOL/L (136-145); TOTAL PROTEIN 7.4 G/DL (5.7-8.2); TRIGLYCERIDES LEVEL 92 MG/DL (<150)
== END ==
LOC: M SFHCADAM 11:18
PROVIDERS: ATTEND Physician Assistant Medical
DX: I10 Essential (primary) hypertension (principal); E55.9 Vitamin D deficiency, unspecified; Z87.898 Personal history of other specified conditions; I63.9 Cerebral infarction, unspecified

== ENCOUNTER → 2023-11-17 | Outpatient (CLI) | payer MEDICAID | LOC: M OUTALCOH 07:15 | PROVIDERS: ATTEND Psychiatry & Neurology Psychiatry | DX: F12.10 Cannabis abuse, uncomplicated (principal); F17.200 Nicotine dependence, unspecified, uncomplicated ==

== ENCOUNTER 2023-11-24 09:55 | Outpatient (RCR) | payer MEDICAID | END 2023-12-03 | LOC: M OUTALCOH 09:55 | PROVIDERS: ATTEND Psychiatry & Neurology Psychiatry | DX: F12.10 Cannabis abuse, uncomplicated (principal); F17.200 Nicotine dependence, unspecified, uncomplicated ==

== ENCOUNTER → 2024-05-17 | Outpatient (REF) | payer OTHER ==
[2024-05-17 19:07] LABS: ALBUMIN 3.7 G/DL (3.2-5.2); ALKALINE PHOSPHATASE 94 U/L (40-129); ALT/SGPT 99 U/L (7.0-40); AST/SGOT 92 U/L (<34); BILIRUBIN,TOTAL 0.3 MG/DL (0.3-1.2); BLOOD UREA NITROGEN 7 MG/DL (9-23); CALCIUM LEVEL 9.8 MG/DL (8.3-10.6); CARBON DIOXIDE LEVEL 29 MMOL/L (20-31); CHLORIDE LEVEL 103 MMOL/L (98-107); CHOLESTEROL LEVEL 195 MG/DL (<200); CHOLESTEROL RISK RATIO 2.46 (<5); CREATININE FOR GFR 0.76 MG/DL (0.70-1.30); GLOMERULAR FILTRATION RATE > 60.0 (>49); GLUCOSE, FASTING 75 MG/DL (74-106); LDL CHOLESTEROL 70.6 MG/DL (<100); POTASSIUM SERUM 4.8 MMOL/L (3.5-5.1); SODIUM LEVEL 138 MMOL/L (136-145); TOTAL PROTEIN 7.5 G/DL (5.7-8.2); TRIGLYCERIDES LEVEL 227 MG/DL (<150)
[2024-05-17 19:11] LABS: TOTAL 25(OH) VITAMIN D 14.9 NG/ML (20.0-100.0)
[2024-05-17 19:12] LABS: BASO # 0.2 10^3/uL (0.0-0.2); BASO % 1.5 % (0.0-1.0); EOS # 0.4 10^3/uL (0.0-0.5); EOS % 4.1 % (0.0-3.0); HEMATOCRIT 44.1 % (42.0-52.0); HEMOGLOBIN 14.9 g/dl (13.5-17.5); LYMPH # 2.7 10^3/uL (1.5-5.0); LYMPH % 27.3 % (24.0-44.0); MEAN CORPUSCULAR HEMOGLOBIN 34.3 pg (27.0-33.0); MEAN CORPUSCULAR HGB CONC 33.8 g/dl (32.0-36.5); MEAN CORPUSCULAR VOLUME 101.4 fl (80.0-96.0); MONO % 10.2 % (2.0-8.0); NEUTROPHILS # 5.5 10^3/uL (1.5-8.5); NEUTROPHILS % 56.3 % (36.0-66.0); PLATELET COUNT, AUTOMATED 276 10^3/uL (150-450); RED BLOOD COUNT 4.35 10^6/uL (4.30-6.10); THYROID STIMULATING HORMONE 3.124 uIU/ML (0.55-4.78); WHITE BLOOD COUNT 9.7 10^3/uL (4.0-10.0)
[2024-05-17 19:13] LABS: FREE T4 1.11 NG/DL (0.89-1.76); VITAMIN B12 LEVEL 358 PG/ML (211-911)
[2024-05-17 19:14] LABS: FOLATE > 24.0 NG/ML (>5.4)
[2024-05-17 19:40] LABS: HEMOGLOBIN A1c 5.2 % (4.0-6.0)
== END ==
LOC: M SFHCADAM 12:08
PROVIDERS: ATTEND Physician Assistant Medical
DX: I10 Essential (primary) hypertension (principal); E55.9 Vitamin D deficiency, unspecified; Z87.898 Personal history of other specified conditions; G47.00 Insomnia, unspecified

== ENCOUNTER → 2024-12-17 | Outpatient (REF) | payer OTHER ==
[~2024-12-17] MED LIST changes: +AMLO-751 PO; -AMLO10TA PO
== END ==
LOC: M LAB REF 17:57
PROVIDERS: ATTEND Plastic Surgery Surgery of the Hand
DX: L72.0 Epidermal cyst (principal)

== ENCOUNTER → 2025-01-30 | Outpatient (REF) | payer OTHER ==
[2025-01-30 14:09] LABS: TOTAL 25(OH) VITAMIN D 43.8 NG/ML (20.0-100.0)
[2025-01-30 14:10] LABS: ALT/SGPT 31 U/L (7.0-40); AST/SGOT 23 U/L (<34); CALCIUM LEVEL 10.2 MG/DL (8.3-10.6); CARBON DIOXIDE LEVEL 31 MMOL/L (20-31); CHLORIDE LEVEL 102 MMOL/L (98-107); CHOLESTEROL LEVEL 211 MG/DL (<200); CHOLESTEROL RISK RATIO 3.19 (<5); CREATININE FOR GFR 0.89 MG/DL (0.70-1.30); GLOMERULAR FILTRATION RATE > 90.0 (>49); LDL CHOLESTEROL 118.8 MG/DL (<100); NON-HDL-C 145.0 MG/DL; POTASSIUM SERUM 5.0 MMOL/L (3.5-5.1); SODIUM LEVEL 140 MMOL/L (136-145); TRIGLYCERIDES LEVEL 131 MG/DL (<150)
[2025-01-30 14:11] LABS: HEPATITIS B SURFACE ANTIBODY POSITIVE (POSITIVE)
[2025-01-30 14:12] LABS: FREE T4 1.07 NG/DL (0.89-1.76); VITAMIN B12 LEVEL 325 PG/ML (211-911)
[2025-01-30 14:18] LABS: BASO # 0.2 10^3/uL (0.0-0.2); BASO % 1.6 % (0.0-1.0); EOS # 0.5 10^3/uL (0.0-0.5); EOS % 5.7 % (0.0-3.0); LYMPH # 2.6 10^3/uL (1.5-5.0); LYMPH % 28.5 % (24.0-44.0); MONO # 1.0 10^3/uL (0.0-0.8); MONO % 11.4 % (2.0-8.0); NEUTROPHILS # 4.8 10^3/uL (1.5-8.5); NEUTROPHILS % 52.4 % (36.0-66.0); PLATELET COUNT, AUTOMATED 377 10^3/uL (150-450)
[2025-01-30 14:44] LABS: HEPATITIS C VIRUS ABY INDEX < 0.02 INDEX (<0.8)
[2025-01-30 14:57] LABS: ESTIMATED AVERAGE GLUCOSE 97.0 MG/DL (60-110)
== END ==
LOC: M SFHCADAM 09:41
PROVIDERS: ATTEND Physician Assistant Medical
DX: I10 Essential (primary) hypertension (principal); R41.3 Other amnesia; E55.9 Vitamin D deficiency, unspecified; I63.9 Cerebral infarction, unspecified; R74.8 Abnormal levels of other serum enzymes; Z87.898 Personal history of other specified conditions

== ENCOUNTER → 2025-02-26 | Outpatient (CLI) | payer OTHER | LOC: M RAD 07:43 | PROVIDERS: ATTEND Physician Assistant Medical | DX: I63.9 Cerebral infarction, unspecified (principal); R74.8 Abnormal levels of other serum enzymes; K80.20 Calculus of gallbladder without cholecystitis without obstruction; I65.23 Occlusion and stenosis of bilateral carotid arteries ==